=== PATIENT | female | born 1945 | race Caucasian/White ===

== ENCOUNTER → 2016-07-27 | Outpatient (CLI) | payer MEDICARE, OTHER ==
--- NOTE | 2016-08-05 09:31 | MM ---
Reason for exam: screening (asymptomatic). Last mammogram was performed 1 year and 1 month ago. History: Patient is postmenopausal and has history of other cancer at age 61. Family history of breast cancer in mother at age 36. Physical Findings: A clinical breast exam by your physician is recommended on an annual basis and results should be correlated with mammographic findings. MG 3D Screening Mammo W/Cad Bilateral CC and MLO view(s) were taken. Prior study comparison: June 24, 2015, mammogram, performed at [facility]. May 22, 2014, mammogram, performed at [facility]. The breast tissue is heterogeneously dense. This may lower the sensitivity of mammography. No significant changes when compared with prior studies. ASSESSMENT: Benign, BI-RAD 2 RECOMMENDATION: Routine screening mammogram of both breasts in 1 year.
== END | disposition home or self-care (01) ==
LOC: RADMAMWWP 12:59
PROVIDERS: ATTEND Obstetrics & Gynecology
DX: Z12.31 Encounter for screening mammogram for malignant neoplasm of breast (principal)
CPT/HCPCS: 77063; G0202

== ENCOUNTER → 2017-01-04 | Outpatient (CLI) | payer MEDICARE, OTHER ==
[2017-01-04 12:24] LABS: Basophils % (A) 1 %; CH 33.2; CHCM 34.5; Eosinophils # (A) 0.2 k/uL (0-0.7); Eosinophils % (A) 3 %; HCT 38.3 % (34.0-46.0); HDW 2.14; HGB 12.6 gm/dL (11.4-16.0); Luc # (Auto) 0.16; Luc % (Auto) 3; Lymphocytes % (A) 16 %; MCH 31.7 pg (25.0-35.0); MCHC 32.8 g/dL (31.0-37.0); MCV 96.6 fL (80.0-100.0); Mean Platelet Volume 8.1; Monocytes # (A) 0.5 k/uL (0-1.0); Monocytes % (A) 7 %; Neutrophils # (A) 4.5 k/uL (1.3-7.7); Neutrophils % (A) 71 %; RBC 3.96 m/uL (3.80-5.40); RDW 13.8 % (11.5-15.5); WBC 6.4 k/uL (3.8-10.6)
[2017-01-04 12:36] LABS: ALT 33 U/L (9-52); AST 17 U/L (14-36); Alkaline Phosphatase 84 U/L (38-126); Anion Gap 11 mmol/L; Blood Urea Nitrogen 8 mg/dL (7-17); Calcium 8.9 mg/dL (8.4-10.2); Carbon Dioxide 25 mmol/L (22-30); Chloride 87 mmol/L (98-107); Glucose 106 mg/dL (74-99); Non-African American GFR(MDRD) >60 (>60 ml/min/1.73 sqM); Potassium 5.1 mmol/L (3.5-5.1); Sodium 123 mmol/L (137-145); Total Bilirubin 0.4 mg/dL (0.2-1.3); Total Protein 6.6 g/dL (6.3-8.2)
== END | disposition home or self-care (01) ==
LOC: LABWHC1 11:55
PROVIDERS: ATTEND Internal Medicine
DX: E03.9 Hypothyroidism, unspecified (principal); I10 Essential (primary) hypertension; R53.83 Other fatigue
CPT/HCPCS: 36415; 80053; 84439; 84443; 84481; 85025

== ENCOUNTER → 2017-01-04 | Outpatient (CLI) | payer MEDICARE, OTHER ==
--- NOTE | 2017-01-04 13:17 | CT ---
EXAMINATION TYPE: CT hip bilateral wo con DATE OF EXAM: 01/04/2017 COMPARISON: NONE HISTORY: Bilateral hip pain CT DLP: Yefri hips mGycm Automated exposure control for dose reduction was used. FINDINGS: There is concentric narrowing of the joint space with no evidence of erosive change bilaterally. Hype rtrophic changes along the greater trochanter of the femur noted bilaterally. There is no acute fracture or dislocation. Vascular calcifications are seen. Pubic rami are intact. Incidental note is made of diverticulosis of the colon IMPRESSION: BILATERAL ARTHRITIC CHANGES WITH NO EROSIVE CHANGE. HYPERTROPHIC SPURRING ALONG THE GREATER TROCHANTE R IS ALSO NOTED BILATERALLY WHICH CAN OCCASIONALLY BE ASSOCIATED WITH TROCHANTERIC BURSITIS. IF SYMPT OMS PERSIST CONSIDER MRI..
--- NOTE | 2017-01-04 22:23 | MR ---
EXAMINATION TYPE: MR lumbar spine wo/w con DATE OF EXAM: 01/04/2017 COMPARISON: NONE HISTORY: Lumbar pain CONTRAST: 10 mL intravenous MultiHance. TECHNIQUE: Multiplanar, multisequence images of the lumbar spine were acquired. FINDINGS: L5-S1: There is a small central disc protrusion with mild anterior thecal sac compression. No AP spin al canal stenosis present. Neural foramen are patent. Disc space narrowing is present. Facet hypertro phy is present, greater on the left than the right. There is a left hemilaminectomy at L5-S1. Postsur gical changes may be present L4-5. L4-L5: Central disc bulge has mild to moderate anterior thecal sac compression. Facet hypertrophy is posterior lateral thecal sac compression. No AP spinal canal stenosis present. Neural foramen are pat ent. L3-L4: Disc uncovering is present with moderate anterior thecal sac flattening. Facet hypertrophy is posterior lateral thecal sac compression. Some lateral canal narrowing may be present. No AP spinal c anal stenosis is present. Neural foramen are patent. L2-L3: Broad-based disc bulge has mild anterior thecal sac compression. Posterior lateral thecal sac compression is present. No AP spinal canal stenosis present. Neural foramen are patent. L1-L2: Mild disc bulge has anterior thecal sac contact. No AP spinal canal stenosis or neural foramin al stenosis is present. No spinal canal stenosis. No foraminal stenosis. . T12-L1: No significant disc bulge or disc herniation. No spinal canal stenosis. No foraminal stenos is. . No abnormal enhancement. IMPRESSION: 1. Multilevel mild disc bulge with anterior thecal sac contact discussed above. No spinal canal steno sis present. 2. L3-4 facet hypertrophy may be contributing to mild lateral canal narrowing. 3. Multilevel facet hypertrophy is mild posterior lateral thecal sac compression.
== END | disposition home or self-care (01) ==
LOC: RADCTMAIN 12:27
PROVIDERS: ATTEND Psychiatry & Neurology Neurology
DX: M16.0 Bilateral primary osteoarthritis of hip (principal); M48.06 Spinal stenosis, lumbar region; M51.26 Other intervertebral disc displacement, lumbar region; M46.96 Unspecified inflammatory spondylopathy, lumbar region
CPT/HCPCS: 73700 ×2; 72158; A9577

== ENCOUNTER 2017-01-26 12:26 | Observation (INO) | payer MEDICARE, OTHER ==
--- NOTE | 2017-01-26 13:21 | ED ---
General Adult HPI - General Stated complaint: Abd Pain Time Seen by Provider: 01/26/17 12:55 Source: RN notes reviewed - History of Present Illness Initial comments: Patient 72-year-old female who presents emergency room today with a chief complaint of abdominal pain that began last night. She does admit to abdominal cramping middle of her abdomen. She does not feel nausea and no vomiting. States never had similar symptoms in the past. Currently rates pain 10/10. Denies any other radiation. Patient denies any recent fever, chills, shortness of breath, chest pain, back pain, numbness or tingling, dysuria or hematuria, constipation or diarrhea, headaches or visual changes, or any other complaints. - Related Data Home Medications Medication Instructions Recorded Confirmed Bidil 20/37.5mg 1 tab PO TID 10/17/15 01/26/17 Candesartan Cilexetil [Atacand] 32 mg PO HS 10/17/15 01/26/17 Levothyroxine Sodium [Synthroid] 50 mcg PO HS 10/17/15 01/26/17 Metoprolol Succinate [Toprol XL] 100 mg PO DAILY 10/17/15 01/26/17 OXcarbazepine [Trileptal] 150 mg PO BID 10/17/15 01/26/17 Simvastatin [Zocor] 20 mg PO HS 10/17/15 01/26/17 Gabapentin [Neurontin] 300 mg PO BID 01/26/17 01/26/17 Meclizine [Antivert] 25 mg PO TID PRN 01/26/17 01/26/17 Melatonin 10 mg PO HS 01/26/17 01/26/17 Sulfamethox-Tmp 800-160Mg [Bactrim 1 tab PO Q12HR 01/26/17 01/26/17 DS 800-160 mg] Allergies Allergy/AdvReac Type Severity Reaction Status Date / Time hydrocodone bitartrate Allergy Unknown Verified 01/26/17 13:40 [From Vicodin] Iodinated Contrast- Oral and Allergy Rash/Hives Verified 01/26/17 13:40 IV Dye [Iodinated Contrast Media - IV Dye] Review of Systems ROS Statement: Those systems with pertinent positive or pertinent negative responses have been documented in the HPI. ROS Other: All systems not noted in ROS Statement are negative. Past Medical History Past Medical History: Hyperlipidemia, Hypertension, Thyroid Disorder Additional Past Medical History / Comment(s): trigeminal neuralgia History of Any Multi-Drug Resistant Organisms: None Reported Past Surgical History: Back Surgery, Hernia Repair, Hysterectomy Past Psychological History: Anxiety Smoking Status: Never smoker Past Alcohol Use History: None Reported Past Drug Use History: None Reported General Exam - General Exam Comments Initial Comments: General: The patient is awake and alert, in no distress, and does not appear acutely ill. Eye: Pupils are equal, round and reactive to light, extra-ocular movements are intact. No nystagmus. There is normal conjunctiva bilaterally. No signs of icterus. Ears, nose, mouth and throat: There are moist mucous membranes and no oral lesions. Neck: The neck is supple, there is no tenderness or JVD. Cardiovascular: There is a regular rate and rhythm. No murmur, rub or gallop is appreciated. Respiratory: Lungs are clear to auscultation, respirations are non-labored, breath sounds are equal. No wheezes, stridor, rales, or rhonchi. Gastrointestinal: Normal appearance abdomen. Normal bowel sounds. No pulsatile mass. Tender to palpation epigastric and left upper quadrants. No rebound tenderness. No guarding. Musculoskeletal: Normal ROM, no tenderness. Strength 5/5. Sensation intact. Pulses equal bilaterally 2+. Neurological: A&O x 3. CN II-XII intact, There are no obvious motor or sensory deficits. Coordination appears grossly intact. Speech is normal. Skin: Skin is warm and dry and no rashes or lesions are noted. Psychiatric: Cooperative, appropriate mood & affect, normal judgment. Course Vital Signs 01/26/17 01/26/17 16:45 17:19 Temperature 98.5 F Pulse Rate 86 80 Respiratory 20 20 Rate Blood Pressure 204/98 146/72 O2 Sat by Pulse 97 3 L Oximetry Medical Decision Making - Medical Decision Making Patient has been reexamined multiple times in emergency room. She continues have abdominal pain. Patient's CT of the abdomen does show a pulmonary nodule along with a nodule in the liver. There is evidence for diverticulosis without diverticulitis. No other acute abnormalities. Patient's CAT scan. Labs been reviewed. Patient retention had a full catheter placement 1700 mL removed. Patient continues have pain after full catheter placement. Patient's blood pressure continued to be elevated in the emergency room needed multiple rounds of IV blood pressure medication. At this time she is now resting comfortably. Blood pressure 148/82. Patient was seen by attending physician Dr. Cotton did discuss case with admitting physician. Patient will be admitted for intractable abdominal pain and hypertension. - Lab Data Result diagrams: 01/26/17 12:30 01/26/17 12:30 Lab Results 01/26/17 01/26/17 01/26/17 Range/Units 12:30 12:30 12:30 WBC 9.2 (3.8-10.6) k/uL RBC 4.88 (3.80-5.40) m/uL Hgb 15.9 D (11.4-16.0) gm/dL Hct 44.9 (34.0-46.0) % MCV 92.0 (80.0-100.0) fL MCH 32.6 (25.0-35.0) pg MCHC 35.4 (31.0-37.0) g/dL RDW 13.0 (11.5-15.5) % Plt Count 337 (150-450) k/uL Neutrophils % 84 % Lymphocytes % 11 % Monocytes % 4 % Eosinophils % 1 % Basophils % 0 % Neutrophils # 7.7 (1.3-7.7) k/uL Lymphocytes # 1.0 (1.0-4.8) k/uL Monocytes # 0.4 (0-1.0) k/uL Eosinophils # 0.1 (0-0.7) k/uL Basophils # 0.0 (0-0.2) k/uL PT (9.0-12.0) sec INR (<1.2) APTT (22.0-30.0) sec Sodium 125 L (137-145) mmol/L Potassium 4.6 (3.5-5.1) mmol/L Chloride 93 L (98-107) mmol/L Carbon Dioxide 17 L (22-30) mmol/L Anion Gap 15 mmol/L BUN 8 (7-17) mg/dL Creatinine 0.70 (0.52-1.04) mg/dL Est GFR (MDRD) Af Amer >60 (>60 ml/min/1.73 sqM) Est GFR (MDRD) Non-Af >60 (>60 ml/min/1.73 sqM) Glucose 156 H (74-99) mg/dL Plasma Lactic Acid Ney (0.7-2.0) mmol/L Calcium 9.8 (8.4-10.2) mg/dL Total Bilirubin 1.0 (0.2-1.3) mg/dL AST 25 (14-36) U/L ALT 29 (9-52) U/L Alkaline Phosphatase 97 (38-126) U/L Total Creatine Kinase 46 (30-135) U/L CK-MB (CK-2) 0.6 (0.0-2.4) ng/mL CK-MB (CK-2) Rel Index 1.3 Total Protein 8.2 (6.3-8.2) g/dL Albumin 4.9 (3.5-5.0) g/dL Amylase 61 (30-110) U/L Urine Color Urine Appearance (Clear) Urine pH (5.0-8.0) Ur Specific [place] (1.001-1.035) Urine Protein (Negative) Urine Glucose (UA) (Negative) Urine Ketones (Negative) Urine Blood (Negative) Urine Nitrite (Negative) Urine Bilirubin (Negative) Urine Urobilinogen (<2.0) mg/dL Ur Leukocyte Esterase (Negative) Urine RBC (0-5) /hpf Urine WBC (0-5) /hpf 01/26/17 01/26/17 01/26/17 Range/Units 12:30 12:30 12:30 WBC (3.8-10.6) k/uL RBC (3.80-5.40) m/uL Hgb (11.4-16.0) gm/dL Hct (34.0-46.0) % MCV (80.0-100.0) fL MCH (25.0-35.0) pg MCHC (31.0-37.0) g/dL RDW (11.5-15.5) % Plt Count (150-450) k/uL Neutrophils % % Lymphocytes % % Monocytes % % Eosinophils % % Basophils % % Neutrophils # (1.3-7.7) k/uL Lymphocytes # (1.0-4.8) k/uL Monocytes # (0-1.0) k/uL Eosinophils # (0-0.7) k/uL Basophils # (0-0.2) k/uL PT 10.1 (9.0-12.0) sec INR 1.0 (<1.2) APTT 25.7 (22.0-30.0) sec Sodium (137-145) mmol/L Potassium (3.5-5.1) mmol/L Chloride (98-107) mmol/L Carbon Dioxide (22-30) mmol/L Anion Gap mmol/L BUN (7-17) mg/dL Creatinine (0.52-1.04) mg/dL Est GFR (MDRD) Af Amer (>60 ml/min/1.73 sqM) Est GFR (MDRD) Non-Af (>60 ml/min/1.73 sqM) Glucose (74-99) mg/dL Plasma Lactic Acid Ney 1.4 (0.7-2.0) mmol/L Calcium (8.4-10.2) mg/dL Total Bilirubin (0.2-1.3) mg/dL AST (14-36) U/L ALT (9-52) U/L Alkaline Phosphatase (38-126) U/L Total Creatine Kinase (30-135) U/L CK-MB (CK-2) (0.0-2.4) ng/mL CK-MB (CK-2) Rel Index Total Protein (6.3-8.2) g/dL Albumin (3.5-5.0) g/dL Amylase (30-110) U/L Urine Color Light Yellow Urine Appearance Clear (Clear) Urine pH 8.0 (5.0-8.0) Ur Specific [place] 1.007 (1.001-1.035) Urine Protein 1+ H (Negative) Urine Glucose (UA) Negative (Negative) Urine Ketones 1+ H (Negative) Urine Blood Negative (Negative) Urine Nitrite Negative (Negative) Urine Bilirubin Negative (Negative) Urine Urobilinogen <2.0 (<2.0) mg/dL Ur Leukocyte Esterase Negative (Negative) Urine RBC 9 H (0-5) /hpf Urine WBC 2 (0-5) /hpf Disposition Clinical Impression: Intractable abdominal pain, HTN (hypertension) Disposition: ADMITTED IP TO THIS [facility] Condition: Stable Referrals: Elder Engel MD [Primary Care Provider] - 1-2 days Time of Disposition: 17:09
[2017-01-26 13:33] LABS: Amylase 61 U/L (30-110); Anion Gap 15 mmol/L; Appearance,Urine Clear (Clear); Bilirubin,Urine Negative (Negative); Calcium 9.8 mg/dL (8.4-10.2); Carbon Dioxide 17 mmol/L (22-30); Chloride 93 mmol/L (98-107); Glucose 156 mg/dL (74-99); Glucose,Urine (UA) Negative (Negative); Ketones,Urine 1+ (Negative); Leukocyte Esterase,Urine Negative (Negative); Nitrite,Urine Negative (Negative); Non-African American GFR(MDRD) >60 (>60 ml/min/1.73 sqM); Particle Count 4799; Protein,Urine 1+ (Negative); RBC,Urine 9 /hpf (0-5); Sodium 125 mmol/L (137-145); Specific Gravity,Urine 1.007 (1.001-1.035); Total Protein 8.2 g/dL (6.3-8.2); UA Billing (MACRO vs. MICRO) MICRO; Urobilinogen,Urine <2.0 mg/dL (<2.0); WBC,Urine 2 /hpf (0-5)
[2017-01-26 13:35] LABS: RBC 4.88 m/uL (3.80-5.40); WBC 9.2 k/uL (3.8-10.6); WBC (Perox) 9.12
[2017-01-26 13:36] LABS: AST 25 U/L (14-36); Alkaline Phosphatase 97 U/L (38-126); Blood Urea Nitrogen 8 mg/dL (7-17); Potassium 4.6 mmol/L (3.5-5.1)
[2017-01-26 13:37] LABS: ALT 29 U/L (9-52)
[2017-01-26 13:38] LABS: CH 32.2; CHCM 35.1; HCT 44.9 % (34.0-46.0); HDW 2.19; HGB 15.9 gm/dL (11.4-16.0); MCH 32.6 pg (25.0-35.0); MCHC 35.4 g/dL (31.0-37.0); Mean Platelet Volume 7.3
[2017-01-26 13:39] LABS: Basophils % (A) 0 %; Eosinophils # (A) 0.1 k/uL (0-0.7); Eosinophils % (A) 1 %; Luc % (Auto) 1; Lymphocytes % (A) 11 %; Monocytes # (A) 0.4 k/uL (0-1.0); Monocytes % (A) 4 %; Neutrophils # (A) 7.7 k/uL (1.3-7.7); Neutrophils % (A) 84 %
[2017-01-26 13:47] LABS: Partial Thromboplastin Time 25.7 sec (22.0-30.0); Prothrombin Time 10.1 sec (9.0-12.0)
[2017-01-26 13:56] LABS: Creatine Kinase MB 0.6 ng/mL (0.0-2.4)
[2017-01-26] MEDS ORDERED: hydrALAZINE HCL 20 MG/ML 1 ML VIAL IVP STA ×2 (14:35→16:12)
--- NOTE | 2017-01-26 14:46 | CT ---
EXAMINATION TYPE: CT abdomen pelvis w con DATE OF EXAM: 01/26/2017 COMPARISON: NONE HISTORY: Upper abdominal pain and nausea CT DLP: 1190 mGycm Automated exposure control for dose reduction was used. CONTRAST: 100 cc Omnipaque 300 FINDINGS- LUNG BASES-subsegmental consolidation at both lung bases compatible scarring or atelectasis. Cannot e xclude a 2 mm nodule laterally within the left lower lobe. The heart is enlarged.. LIVER/GB-previous cholecystectomy changes noted. Is a 7 mm area of hyperdensity within the medial asp ect of the right lobe of the liver which may represent flash hemangioma.. PANCREAS- No gross abnormality is seen. SPLEEN- No gross abnormality is seen. ADRENALS-mild nodularity measuring less than a centimeter left adrenal gland too small to characteriz e.. KIDNEYS/BLADDER- no hydronephrosis nephrolithiasis or renal mass. BOWEL- no bowel dilatation. Diverticulosis of the colon. Stomach is decompressed and limited in asse ssment.. Small hiatal hernia noted. LYMPH NODES- No greater than 1cm abdominal or pelvic lymph nodes are appreciated. OSSEOUS STRUCTURES-up atrophic and degenerative disc disease noted. Disc bulging L4-L5 appears result ing canal stenosis. Canal stenosis L3-L4 also suspected. OTHER- small anterior abdominal wall fat-containing hernia incidentally noted. Thornton catheter in the bladder noted. Residual soft tissue density in the bilateral pelvic adnexa may represent residual ov kristina tissue or fallopian tube remnant. Uterus not present correlate for previous hysterectomy. IMPRESSION- 1. 2 mm left lower lobe pulmonary nodule too small to characterize 6 month follow-up could be obtaine christina 2. Colonic diverticulosis with no diagnostic evidence of diverticulitis 3. 7 mm area of enhancement right lobe the liver too small to characterize but most likely related to flash hemangioma. Short-term follow-up ultrasound could be obtained. 4. Soft tissue densities within the pelvic adnexa likely represent residual ovarian tissue or fallopi an tube remnant. Uterus not present correlate for previous hysterectomy.
[2017-01-26] MEDS ORDERED: HYDROmorphone 1 MG/ML 1 ML SYRINGE IVP STA ×2 (15:18→16:13)
[2017-01-26] MEDS ORDERED: LORazepam 2 MG/ML INJ IV STA (16:52)
[2017-01-26] MEDS ORDERED: LABETALOL 5 MG/ML VIAL MDV IVP STA (16:53)
[2017-01-26] MEDS ORDERED: NALOXONE 0.4 MG/ML 1 ML VIAL IV PRN (17:29)
[2017-01-26] MEDS ORDERED: ONDANSETRON 4 MG/2 ML VIAL IVP PRN (17:29)
[2017-01-26] MEDS ORDERED: HYDROmorphone 1 MG/ML 1 ML SYRINGE IV PRN (17:29)
[2017-01-26] MEDS ORDERED: LORazepam 2 MG/ML INJ IV PRN (17:29)
[2017-01-26] MEDS ORDERED: MORPHINE SULFATE 4 MG/ML SYRINGE IV PRN (17:57)
--- NOTE | 2017-01-26 18:10 | P.HPIM ---
History of Present Illness H&P Date: 01/26/17 Chief Complaint: Abdominal pain The patient is a 72-year-old female with a past history of essential hypertension, hypothyroidism, trigeminal neuralgia who presents to the ER Via EMS with chief complaint of sudden onset of severe upper mid epigastric abdominal pain without radiation reports some nausea but no vomiting. The patient Is pretty somnolent after having 2 doses of labetalol added in the ED and is not able to give adequate history, hence the history is obtained from her And ER records. The patient has been reports of the patient had severe headache today as well as significantly elevated blood pressures leading him to call EMS. Apparently the patient was seen yesterday by her PCP and a new medication was started, the is unable to provide specifics. In the ER she had a CT abdomen and pelvis did not show any acute intra- abdominal pathology, serum sodium was 125, bicarbonate was 17. Review of Systems Unable to obtain secondary to analgesic with sedatory effects given in the ER Past Medical History Past Medical History: Hyperlipidemia, Hypertension, Thyroid Disorder Additional Past Medical History / Comment(s): trigeminal neuralgia History of Any Multi-Drug Resistant Organisms: None Reported Past Surgical History: Back Surgery, Hernia Repair, Hysterectomy Past Psychological History: Anxiety Smoking Status: Never smoker Past Alcohol Use History: None Reported Past Drug Use History: None Reported Medications and Allergies Home Medications Medication Instructions Recorded Confirmed Type Bidil 20/37.5mg 1 tab PO TID 10/17/15 01/26/17 History Candesartan Cilexetil [Atacand] 32 mg PO HS 10/17/15 01/26/17 History Levothyroxine Sodium [Synthroid] 50 mcg PO HS 10/17/15 01/26/17 History Metoprolol Succinate [Toprol XL] 100 mg PO DAILY 10/17/15 01/26/17 History OXcarbazepine [Trileptal] 150 mg PO BID 10/17/15 01/26/17 History Simvastatin [Zocor] 20 mg PO HS 10/17/15 01/26/17 History Gabapentin [Neurontin] 300 mg PO BID 01/26/17 01/26/17 History Meclizine [Antivert] 25 mg PO TID PRN 01/26/17 01/26/17 History Melatonin 10 mg PO HS 01/26/17 01/26/17 History Sulfamethox-Tmp 800-160Mg [Bactrim 1 tab PO Q12HR 01/26/17 01/26/17 History DS 800-160 mg] Allergies Allergy/AdvReac Type Severity Reaction Status Date / Time hydrocodone bitartrate Allergy Unknown Verified 01/26/17 13:40 [From Vicodin] Iodinated Contrast- Oral and Allergy Rash/Hives Verified 01/26/17 13:40 IV Dye [Iodinated Contrast Media - IV Dye] Physical Exam Vitals: Vital Signs Temp Pulse Resp BP Pulse Ox 01/26/17 17:19 80 20 146/72 93 L 01/26/17 16:45 98.5 F 86 20 204/98 97 Intake and Output 01/26/17 01/26/17 01/26/17 06:59 14:59 22:59 Other: Weight 61.235 kg Patient Weight 01/27/17 06:59 Weight 61.235 kg Constitutional: No acute distress, extremely somnolent and not able to provide a history Eyes: Anicteric sclerae, moist conjunctiva, no lid-lag, PERRLA ENMT: NC/AT,Oropharynx clear, no erythema, exudates Neck:Supple, FROM, no masses, or JVD, No carotid bruits; No thyromegaly Lungs: Clear to auscultation, Clear to percussion, Normal respiratory effort, no accessory muscle use Cardiovascular: Heart regular in rate and rhythm, No murmurs, gallops, or rubs no peripheral edema Abdominal: Soft tender to palpation, facial grimaces nom distended, no guarding , no rebound or rigidity, Normoactive bowel sounds No hepatomegaly, No splenomegaly, No palpable mass No abdominal wall hernia noted Skin: Normal temperature, tone, texture, turgor, No induration No subcutaneous nodules, No rash, lesions, No ulcers Extremities:No digital cyanosis No clubbing, Pedal pulses intact and symmetrical Radial pulses intact and symmetrical Normal gait and station, No calf tenderness Psychiatric: Appropriate affect Intact judgement Neuro: Muscles Strength 5/5 in all 4 extremities, Sensation to light touch grossly present throughout, Cranial nerves II-XII grossly intact. No focal sensory deficits Somnolent and difficult to arouse Results CBC & Chem 7: 01/26/17 12:30 01/26/17 12:30 Labs: Abnormal Lab Results - Last 24 Hours (Table) 01/26/17 01/26/17 Range/Units 12:30 12:30 Sodium 125 L (137-145) mmol/L Chloride 93 L (98-107) mmol/L Carbon Dioxide 17 L (22-30) mmol/L Glucose 156 H (74-99) mg/dL Urine Protein 1+ H (Negative) Urine Ketones 1+ H (Negative) Urine RBC 9 H (0-5) /hpf Assessment and Plan (1) Intractable abdominal pain Status: Acute (2) Hyponatremia Status: Acute (3) Accelerated hypertension Status: Acute (4) Metabolic acidosis Status: Acute Plan: patient is placed in observation status after presenting with intractable upper abdominal pain, less than 2 midnights stay, Suspect underlying peptic ulcer disease versus possible FILM MOUNTER etiology, will consult GI doctor [place] to evaluate for EGD, We'll contact her PCP Dr. Engel tomorrow guarding what new medication was initiated at his last visit yesterday. We'll initiate PPI therapy, supportive management with morphine rather than Dilaudid the patient is completely somnolent And difficult to arouse and evaluate at this time. Continue with Zofran as needed, will continue to monitor her blood pressure Plan initiated metoprolol IV every 6 hours when necessary for her accelerated HTN likely pain induced. We'll check a serum lipase as it is more specific and a amylase. Her chart indicates the patient has been hyponatremic previously I suspect this may be chronic given the patient's Chart review she is receiving ongoing therapy with Trileptal for trigeminal neuralgia. Again I'll discuss this with the patient's PCP WILL FOLLOW HER CLINICAL COURSE Time with Patient: Greater than 30
[2017-01-26] MEDS ORDERED: METOPROLOL TARTRATE 5 MG/5 ML VIAL IVP PRN (18:12)
[2017-01-26] MEDS ORDERED: MORPHINE SULFATE 4 MG/ML SYRINGE IVP PRN (18:15)
[2017-01-26] MEDS ORDERED: ATORVASTATIN 10 MG TAB PO SCH (21:00)
[2017-01-26] MEDS ORDERED: LEVOTHYROXINE 50 MCG TAB PO SCH (21:00)
[2017-01-26] MEDS ORDERED: ISOSORBIDE DINITRATE 20 MG TAB PO SCH (22:00)
[2017-01-26] MEDS ORDERED: HYDROCHLOROTHIAZIDE 12.5 MG CAP PO SCH (22:00)
[2017-01-26] MEDS ORDERED: MD COMMUNICATION TO PHARMACY 1 EACH MISC PO SCH (22:00)
[2017-01-26] MEDS ORDERED: HYDROCHLOROTHIAZIDE 25 MG TAB PO SCH (22:00)
--- NOTE | 2017-01-26 22:32 | P.CONS ---
History of Present Illness - Reason for Consult Consult date: 01/26/17 - History of Present Illness The patient is a 72-year-old female with a past history of essential hypertension, hypothyroidism, trigeminal neuralgia who presented to the ER [facility] with chief complaint of sudden onset of severe upper mid epigastric abdominal pain associated with nausea. The pain did not radiate to the back and did not have any pleuritic component. There was no associated vomiting. We are asked to see her for consideration for an upper endoscopy. The patient had prior cholecystectomy. There is no history of optic ulcer disease. Denied any hematemesis or melena. She has not been taking any NSAIDs that we are aware of. Review of Systems Constitutional: Denies fever, chills, sweats, weight gain, or loss. HEENT: History of headaches, no blurred vision or loss, earaches, drainage, tinnitus, oral mucosal lesions, dysphagia, or odynophagia. Cardiac: No chest pains or palpitations. Respiratory: Negative for shortness of breath, hemoptysis, cough, or sputum production. Gastrointestinal: See HPI for pertinent findings. Genitourinary: Negative for hematuria, urgency, frequency, polyuria or dysuria. Musculoskeletal: Negative for muscle aches, swelling, arthritis, and arthralgias. Neurologic: See above. No double vision or any new sensory or motor changes. Endocrine: Negative for thyroid problems. Skin: Negative for rash or itching. Psychiatric: Negative history for depression and anxiety. Past Medical History Past Medical History: Hyperlipidemia, Hypertension, Thyroid Disorder Additional Past Medical History / Comment(s): trigeminal neuralgia History of Any Multi-Drug Resistant Organisms: None Reported Past Surgical History: Back Surgery, Hernia Repair, Hysterectomy Past Psychological History: Anxiety Smoking Status: Never smoker Past Alcohol Use History: None Reported Past Drug Use History: None Reported - Past Family History Father Additional Family Medical History / Comment(s): at age 92 from "old age" Mother Family Medical History: Congestive Heart Failure (CHF) Additional Family Medical History / Comment(s): at age 84 from chf Medications and Allergies Home Medications Medication Instructions Recorded Confirmed Type Bidil 20/37.5mg 1 tab PO TID 10/17/15 01/26/17 History Candesartan Cilexetil [Atacand] 32 mg PO HS 10/17/15 01/26/17 History Levothyroxine Sodium [Synthroid] 50 mcg PO HS 10/17/15 01/26/17 History Metoprolol Succinate [Toprol XL] 100 mg PO DAILY 10/17/15 01/26/17 History OXcarbazepine [Trileptal] 150 mg PO BID 10/17/15 01/26/17 History Simvastatin [Zocor] 20 mg PO HS 10/17/15 01/26/17 History Gabapentin [Neurontin] 300 mg PO BID 01/26/17 01/26/17 History Meclizine [Antivert] 25 mg PO TID PRN 01/26/17 01/26/17 History Melatonin 10 mg PO HS 01/26/17 01/26/17 History Sulfamethox-Tmp 800-160Mg [Bactrim 1 tab PO Q12HR 01/26/17 01/26/17 History DS 800-160 mg] Allergies Allergy/AdvReac Type Severity Reaction Status Date / Time hydrocodone bitartrate Allergy Unknown Verified 01/26/17 13:40 [From Vicodin] Iodinated Contrast- Oral and Allergy Rash/Hives Verified 01/26/17 13:40 IV Dye [Iodinated Contrast Media - IV Dye] Physical Exam Vitals: Vital Signs Temp Pulse Pulse Resp BP BP Pulse Ox 01/26/17 18:46 98.3 F 82 16 142/71 97 01/26/17 18:02 86 20 136/65 93 L 01/26/17 17:19 80 20 146/72 93 L 01/26/17 16:45 98.5 F 86 20 204/98 97 Intake and Output 01/26/17 01/26/17 01/26/17 06:59 14:59 22:59 Other: Weight 61.235 kg Patient Weight 01/27/17 06:59 Weight 61.235 kg General appearance: The patient is alert, oriented, in some distress. HET: Head is normocephalic and atraumatic. Pupils are equal and reactive. Sclerae anicteric. Oropharynx is clear without lesions. Neck: Supple without lymphadenopathy. Trachea midline. Heart: No abnormal sounds murmurs or friction rubs. Lungs: Clear to auscultation, no dullness to percussion. Abdomen: Soft, bowel sounds present. Epigastric tenderness. No peritoneal signs. No palpable organomegaly or masses. Extremities: Normal skin color and turgor. No cyanosis, rash, ulceration or clubbing. No edema. Radial and pedal pulses are 2/4 bilaterally. Neurological: No focal deficits. Strength and sensation are grossly intact. Results CBC & Chem 7: 01/26/17 12:30 01/26/17 12:30 Labs: Abnormal Lab Results - Last 24 Hours (Table) 01/26/17 01/26/17 Range/Units 12:30 12:30 Sodium 125 L (137-145) mmol/L Chloride 93 L (98-107) mmol/L Carbon Dioxide 17 L (22-30) mmol/L Glucose 156 H (74-99) mg/dL Urine Protein 1+ H (Negative) Urine Ketones 1+ H (Negative) Urine RBC 9 H (0-5) /hpf Microbiology - Last 24 Hours (Table) 01/26/17 12:30 Urine Culture - Preliminary Urine,Clean Catch Assessment and Plan Plan: 72-year-old female with acute onset of epigastric pain. The possibility of gastritis or peptic ulcer disease as well as esophagitis should be considered. I discussed with the patient and her that if her pain persists we will proceed with an upper endoscopy as you have suggested. We will keep nothing by mouth and follow closely with you.
[2017-01-26] MEDS: PANTOPRAZOLE 40 MG/10 ML VIAL IV SCH (22:38)
[2017-01-26] MEDS: ENOXAPARIN 40 MG/0.4 ML SYRINGE SQ SCH (22:38)
[2017-01-26] MEDS: GABAPENTIN 300 MG CAP PO SCH (22:39)
[2017-01-26] MEDS: MELATONIN 5 MG TABLET PO SCH (22:40)
[2017-01-26] MEDS: LOSARTAN 50 MG TAB PO SCH (22:40)
[2017-01-26] MEDS: OXcarbazepine 150 MG TAB PO SCH (22:41)
[2017-01-26] MEDS: SODIUM CHLORIDE 0.9% 1,000 ML IV SCH (22:42)
[2017-01-26] MEDS: hydrALAZINE HCL 25 MG TAB PO SCH (22:43)
[2017-01-26] MEDS: ISOSORBIDE DINITRATE 20 MG TAB PO SCH (22:44)
[2017-01-27] MEDS: LEVOTHYROXINE 50 MCG TAB PO SCH (06:20)
[2017-01-27] MEDS: SODIUM CHLORIDE 0.9% 1,000 ML IV SCH ×3 (06:20→20:00)
[2017-01-27] MEDS: OXcarbazepine 150 MG TAB PO SCH ×2 (08:09→21:33)
[2017-01-27] MEDS: ISOSORBIDE DINITRATE 20 MG TAB PO SCH ×3 (08:09→21:33)
[2017-01-27] MEDS: hydrALAZINE HCL 25 MG TAB PO SCH ×3 (08:09→21:34)
[2017-01-27] MEDS: GABAPENTIN 300 MG CAP PO SCH ×3 (08:09→21:33)
[2017-01-27 08:19] LABS: ALT 12 U/L (9-52); AST 52 U/L (14-36); Alkaline Phosphatase 69 U/L (38-126); Anion Gap 14 mmol/L; Blood Urea Nitrogen 16 mg/dL (7-17); Carbon Dioxide 17 mmol/L (22-30); Chloride 97 mmol/L (98-107); Glucose 107 mg/dL (74-99); Non-African American GFR(MDRD) 50 (>60 ml/min/1.73 sqM); Potassium 5.8 mmol/L (3.5-5.1); Sodium 128 mmol/L (137-145); Total Bilirubin 1.8 mg/dL (0.2-1.3); Total Protein 8.4 g/dL (6.3-8.2)
[2017-01-27 08:24] LABS: Basophils % (A) 0 %; CH 32.4; CHCM 34.1; Eosinophils # (A) 0.1 k/uL (0-0.7); Eosinophils % (A) 0 %; HCT 44.5 % (34.0-46.0); HDW 2.13; HGB 15.2 gm/dL (11.4-16.0); Luc # (Auto) 0.25; Luc % (Auto) 2; Lymphocytes # (A) 1.1 k/uL (1.0-4.8); Lymphocytes % (A) 8 %; MCH 32.4 pg (25.0-35.0); MCV 95.3 fL (80.0-100.0); Mean Platelet Volume 8.3; Monocytes # (A) 1.2 k/uL (0-1.0); Monocytes % (A) 8 %; Neutrophils # (A) 11.3 k/uL (1.3-7.7); Neutrophils % (A) 81 %; RBC 4.67 m/uL (3.80-5.40); RDW 14.3 % (11.5-15.5); WBC 13.8 k/uL (3.8-10.6); WBC (Perox) 13.42
[2017-01-27] MEDS ORDERED: METOPROLOL SUCCINATE (ER) 100 MG TAB.ER.24H PO SCH ×2 (09:00→21:00)
[2017-01-27 10:03] VITALS: BMI 24.7
[2017-01-27] MEDS ORDERED: diphenhydrAMINE 50 MG/ML 1 ML VIAL IVP PRN (10:05)
[2017-01-27] MEDS: ENOXAPARIN 40 MG/0.4 ML SYRINGE SQ SCH (10:15)
[2017-01-27] MEDS: PANTOPRAZOLE 40 MG/10 ML VIAL IV SCH (10:17)
[2017-01-27] MEDS ORDERED: MIDAZOLAM 2 MG/2 ML VIAL ONE (10:41)
[2017-01-27] MEDS ORDERED: PROPOFOL 10 MG/ML 20 ML VIAL IV ONE (10:41)
[2017-01-27] MEDS ORDERED: fentaNYL (PF) 50 MCG/ML 2 ML AMP ONE (10:41)
[2017-01-27] MEDS ORDERED: LABETALOL 5 MG/ML VIAL MDV ONE (10:41)
[2017-01-27] MEDS ORDERED: IV FLUID CONTINUATION 1,000 ML IV ONE (10:43)
--- NOTE | 2017-01-27 10:56 | P.PCN ---
Date of Procedure: 01/27/17 Procedure(s) Performed: BRIEF HISTORY: Patient is a 72-year-old, pleasant, female, admitted to the hospital 2 days ago with severe epigastric pain associated with nausea vomiting for the last 2 days' duration. She is hence scheduled for an upper endoscopy to evaluate further. PROCEDURE PERFORMED: Esophagogastroduodenoscopy with biopsy. PREOPERATIVE DIAGNOSIS: Acute onset of epigastric pain associated with nausea/ vomiting of 2 days' duration. IV sedation per anesthesia. PROCEDURE: After informed consent was obtained, the patient was brought into the endoscopy unit. IV sedation was administered by Anesthesia under continuous monitoring. Initially the Olympus GIF-140 video endoscope was inserted into the mouth. Esophagus intubated without any difficulty. It was gradually advanced into the stomach and duodenum and carefully examined. The bulb and the second part of the duodenum appeared normal. The scope at this time was withdrawn to the stomach, adequately insufflated with air, and upon careful examination, mucosa of the antrum, body, cardia and the fundus had diffuse gastritis with multiple mucosal scattered erosions with diffuse erythema and biopsies were done from the antrum and body the stomach.. The scope was then withdrawn into the esophagus. The GE junction was located at 41 cm from the incisors. There was a short tongue of Soliz's appearing mucosa extending 2 mm proximal to the GE junction which was biopsied. The rest of the esophagus appeared normal. There were no erosions or ulcerations seen and the patient tolerated the procedure well. IMPRESSION: 1. Severe diffuse gastritis but no evidence of peptic ulcer disease. 2. Short segment Soliz's esophagus but no evidence of esophagitis. RECOMMENDATIONS: The findings of this examination were discussed with the patient as well as her family. She was advised to follow with the biopsy results. She will be started on a clear liquid diet. Continue with IV Protonix 40 mg twice daily.
[2017-01-27] MEDS ORDERED: MAG HYDROX/AL HYDROX/SIMETH 30 ML, HYOSCYAMINE ELIXIR 10 ML, CIMETIDINE HCL 300 MG, LID... PO STA ×4 (11:49)
--- NOTE | 2017-01-27 12:49 | P.PN ---
Subjective Patient with mid epigastric pain and complaining of headache this morning, she is more awake but somnolent and unable to give a more complete history, Apparently she has been having episodes of urinary retention, seen by Dr. Mock her PCP was started on Bactrim. She complaining of itchiness today Began after starting morphine. Scheduled to have EGD Objective - Vital Signs Vital signs: Vital Signs Temp 98.5 F 01/27/17 07:00 Pulse 84 01/27/17 07:00 Resp 18 01/27/17 07:00 BP 155/84 01/27/17 07:00 Pulse Ox 98 01/27/17 07:00 Intake & Output 01/26/17 01/27/17 01/27/17 18:59 06:59 18:59 Intake Total 1375 250 Output Total 600 Balance 775 250 Weight 61.235 kg 61.235 kg Intake: IV 250 Intake, IV Titration 1375 Amount Sodium Chloride 0.9% 1, 1375 000 ml @ 125 mls/hr IV . Q8H [facility] Rx#:[id number] Output: Urine 600 Uretheral (Thornton) 600 Other: Voiding Method Indwelling Catheter Indwelling Catheter - Exam Constitutional: No acute distress, conversant, pleasant Eyes: Anicteric sclerae, moist conjunctiva, no lid-lag, PERRLA ENMT: NC/AT,Oropharynx clear, no erythema, exudates Neck:Supple, FROM, no masses, or JVD, No carotid bruits; No thyromegaly Lungs: Clear to auscultation, Clear to percussion, Normal respiratory effort, no accessory muscle use Cardiovascular: Heart regular in rate and rhythm, No murmurs, gallops, or rubs no peripheral edema Abdominal: Soft tender to palpation in midepigastrium, nom distended, no guarding, no rebound or rigidity, Normoactive bowel sounds No hepatomegaly, No splenomegaly, No palpable mass No abdominal wall hernia noted Skin: Normal temperature, tone, texture, turgor, No induration No subcutaneous nodules, No rash, lesions, No ulcers Extremities:No digital cyanosis No clubbing, Pedal pulses intact and symmetrical Radial pulses intact and symmetrical Normal gait and station, No calf tenderness Psychiatric: Alert and oriented to person, place and time, Appropriate affect Intact judgement Neuro: Muscles Strength 5/5 in all 4 extremities, Sensation to light touch grossly present throughout, Cranial nerves II-XII grossly intact. No focal sensory deficits - Labs CBC & Chem 7: 01/27/17 07:21 01/27/17 07:21 Labs: Abnormal Lab Results - Last 24 Hours (Table) 01/26/17 01/26/17 01/27/17 Range/Units 12:30 12:30 07:21 WBC 13.8 H (3.8-10.6) k/uL Neutrophils # 11.3 H (1.3-7.7) k/uL Monocytes # 1.2 H (0-1.0) k/uL Sodium 125 L (137-145) mmol/L Potassium (3.5-5.1) mmol/L Chloride 93 L (98-107) mmol/L Carbon Dioxide 17 L (22-30) mmol/L Creatinine (0.52-1.04) mg/dL Glucose 156 H (74-99) mg/dL Total Bilirubin (0.2-1.3) mg/dL AST (14-36) U/L Total Protein (6.3-8.2) g/dL Urine Protein 1+ H (Negative) Urine Ketones 1+ H (Negative) Urine RBC 9 H (0-5) /hpf 01/27/17 Range/Units 07:21 WBC (3.8-10.6) k/uL Neutrophils # (1.3-7.7) k/uL Monocytes # (0-1.0) k/uL Sodium 128 L (137-145) mmol/L Potassium 5.8 H (3.5-5.1) mmol/L Chloride 97 L (98-107) mmol/L Carbon Dioxide 17 L (22-30) mmol/L Creatinine 1.07 H (0.52-1.04) mg/dL Glucose 107 H (74-99) mg/dL Total Bilirubin 1.8 H (0.2-1.3) mg/dL AST 52 H (14-36) U/L Total Protein 8.4 H (6.3-8.2) g/dL Urine Protein (Negative) Urine Ketones (Negative) Urine RBC (0-5) /hpf Microbiology - Last 24 Hours (Table) 01/26/17 12:30 Urine Culture - Preliminary Urine,Clean Catch Assessment and Plan (1) Acute gastritis without bleeding Narrative/Plan: Appreciate GI doctor Wilbert for seeing the patient in performing EGD * Revealing acute gastritis without bleeding is likely the source of her midepigastric pain * Continue on PPI therapy with Protonix 40 mg IV twice a day and give her a GI cocktail and advanced to a liquid diet Status: Acute (2) Hyponatremia Narrative/Plan: Resolving with IV fluids Status: Acute (3) Accelerated hypertension Narrative/Plan: Blood pressure with better control Status: Acute (4) Metabolic acidosis Status: Acute (5) HARVEY (acute kidney injury) Narrative/Plan: Patient with a slight increase of her creatinine to 1.09 some hyperkalemia and metabolic acidosis We'll continue with hydration and repeat a BMP later today and consider a renal ultrasound Status: Acute Time with Patient: Greater than 30
[2017-01-27 16:34] LABS: Anion Gap 11 mmol/L; Blood Urea Nitrogen 14 mg/dL (7-17); Calcium 9.3 mg/dL (8.4-10.2); Carbon Dioxide 21 mmol/L (22-30); Chloride 100 mmol/L (98-107); Glucose 117 mg/dL (74-99); Non-African American GFR(MDRD) >60 (>60 ml/min/1.73 sqM); Potassium 4.3 mmol/L (3.5-5.1); Sodium 132 mmol/L (137-145)
[2017-01-27] MEDS: cloNIDine HCL 0.2 MG TAB PO SCH ×2 (17:16→21:33)
[2017-01-27] MEDS: SULFACETAMIDE SOD 10% OPHTH DROPS 15 ML BTL RIGHT EYE SCH ×2 (17:16→21:33)
[2017-01-27] MEDS: ATORVASTATIN 10 MG TAB PO SCH (18:00)
[2017-01-27] MEDS: MELATONIN 5 MG TABLET PO SCH (21:25)
[2017-01-27] MEDS: LOSARTAN 50 MG TAB PO SCH (21:34)
[2017-01-27 21:59] VITALS: RESP 16
[2017-01-27] MEDS ORDERED: cloNIDine HCL 0.2 MG TAB PO SCH (22:00)
[2017-01-28] MEDS: SODIUM CHLORIDE 0.9% 1,000 ML IV SCH (04:15)
[2017-01-28] MEDS: LEVOTHYROXINE 50 MCG TAB PO SCH (08:27)
--- NOTE | 2017-01-28 08:32 | US ---
EXAMINATION TYPE: US abdomen limited DATE OF EXAM: 01/28/2017 COMPARISON: CT in PACS from 2 days ago. CLINICAL HISTORY: elevated liver enzymes. EXAM MEASUREMENTS: Liver Length: 17.5 cm Gallbladder Wall: Surgically absent CBD: 0.2 cm Right Kidney: 9.8 x 4.0 x 4.1 cm Pancreas: Tail obscured by overlying bowel gas, visualized portions appear wnl Liver: Measuring upper limits of normal, slightly heterogeneous. Unable to visualize area seen on pr ior CT scan. Gallbladder: Surgically absent Evidence for sonographic Obregon's sign: No CBD: wnl Right Kidney: No hydronephrosis or masses seen IMPRESSION: No worrisome intrahepatic mass or intrahepatic ductal dilatation is seen.
[2017-01-28] MEDS: hydrALAZINE HCL 25 MG TAB PO SCH ×2 (08:33→15:49)
[2017-01-28] MEDS: ISOSORBIDE DINITRATE 20 MG TAB PO SCH ×2 (08:34→15:49)
[2017-01-28] MEDS: GABAPENTIN 300 MG CAP PO SCH ×2 (08:34→15:49)
[2017-01-28] MEDS: cloNIDine HCL 0.2 MG TAB PO SCH ×2 (08:34→15:49)
[2017-01-28] MEDS: OXcarbazepine 150 MG TAB PO SCH (08:35)
[2017-01-28] MEDS: PANTOPRAZOLE 40 MG/10 ML VIAL IV SCH (08:35)
[2017-01-28] MEDS: ENOXAPARIN 40 MG/0.4 ML SYRINGE SQ SCH (08:36)
[2017-01-28] MEDS: SULFACETAMIDE SOD 10% OPHTH DROPS 15 ML BTL RIGHT EYE SCH ×3 (08:37→17:17)
[2017-01-28 09:30] LABS: Basophils % (A) 0 %; CH 31.6; CHCM 33.2; Eosinophils # (A) 0.1 k/uL (0-0.7); Eosinophils % (A) 1 %; HCT 39.9 % (34.0-46.0); HDW 2.15; HGB 13.3 gm/dL (11.4-16.0); Luc # (Auto) 0.13; Luc % (Auto) 2; Lymphocytes # (A) 1.2 k/uL (1.0-4.8); Lymphocytes % (A) 17 %; MCH 31.8 pg (25.0-35.0); MCHC 33.3 g/dL (31.0-37.0); MCV 95.6 fL (80.0-100.0); Mean Platelet Volume 6.7; Monocytes # (A) 0.5 k/uL (0-1.0); Monocytes % (A) 8 %; Neutrophils % (A) 73 %; RBC 4.18 m/uL (3.80-5.40); RDW 13.5 % (11.5-15.5); WBC 6.9 k/uL (3.8-10.6); WBC (Perox) 7.12
--- NOTE | 2017-01-28 09:42 | XR ---
EXAMINATION TYPE: XR chest 2V DATE OF EXAM: 01/28/2017 COMPARISON: NONE HISTORY: Leukocytosis and fever. TECHNIQUE: Frontal and lateral views of the chest are obtained. FINDINGS: There is no focal air space opacity or pneumothorax seen. Tiny bilateral pleural effusions are seen with subtle blunting of posterior costophrenic angles. The cardiac silhouette size is mildl y enlarged. Multilevel spurring in thoracic spine is present. IMPRESSION: No suspicious acute infiltrate is present.
[2017-01-28 09:49] LABS: ALT 27 U/L (9-52); AST 19 U/L (14-36); Alkaline Phosphatase 64 U/L (38-126); Anion Gap 9 mmol/L; Blood Urea Nitrogen 11 mg/dL (7-17); Calcium 8.9 mg/dL (8.4-10.2); Carbon Dioxide 22 mmol/L (22-30); Chloride 103 mmol/L (98-107); Glucose 115 mg/dL (74-99); Non-African American GFR(MDRD) >60 (>60 ml/min/1.73 sqM); Potassium 4.3 mmol/L (3.5-5.1); Sodium 134 mmol/L (137-145); Total Bilirubin 0.6 mg/dL (0.2-1.3); Total Protein 6.4 g/dL (6.3-8.2)
[2017-01-28] MEDS ORDERED: LORATADINE 10 MG TAB PO SCH (11:15)
[2017-01-28] MEDS ORDERED: FLUTICASONE 50MCG/SPRAY NASAL 16GM EA NOSTRIL SCH (11:15)
[2017-01-28 15:08] VITALS: BP 174/86; PULSE 70; TEMP 98.1
[2017-01-28 15:37] LABS: Bilirubin, Delta 0.2 mg/dL (0.0-0.2); Total Bilirubin 0.5 mg/dL (0.2-1.3)
[2017-01-28 15:49] LABS: Amorphous Sediment,Urine Rare /hpf; Appearance,Urine Clear (Clear); Bacteria,Urine Rare /hpf; Bilirubin,Urine Negative (Negative); Glucose,Urine (UA) Negative (Negative); Ketones,Urine Negative (Negative); Leukocyte Esterase,Urine Large (Negative); Nitrite,Urine Negative (Negative); PH, Urine 5.5 (5.0-8.0); Particle Count 1904; Protein,Urine Negative (Negative); RBC,Urine 15 /hpf (0-5); Specific Gravity,Urine 1.005 (1.001-1.035); Squamous Epithelial Cell,Urine 4 /hpf (0-4); UA Billing (MACRO vs. MICRO) MICRO; Urobilinogen,Urine <2.0 mg/dL (<2.0); WBC,Urine 12 /hpf (0-5)
[2017-01-28] MEDS: ATORVASTATIN 10 MG TAB PO SCH (15:49)
[2017-01-28] MEDS ORDERED: CEPHALEXIN 500 MG CAP PO STA (16:47)
--- NOTE | 2017-01-28 17:12 | P.DS ---
Providers Date of admission: 01/26/17 17:29 Attending physician: Avni Torres MD Consults: 01/26/17 17:59 Consult Physician Routine Consulting Provider: Josue Wolff Consult Reason/Comments: EGD eval Do you want consulting provider notified?: Yes Primary care physician: Elder Engel - Discharge Diagnosis(es) (1) Acute gastritis without bleeding Current Visit: Yes Status: Acute (2) Hyponatremia Current Visit: Yes Status: Acute (3) Accelerated hypertension Current Visit: Yes Status: Acute (4) Metabolic acidosis Current Visit: Yes Status: Acute (5) HARVEY (acute kidney injury) Current Visit: Yes Status: Acute Hospital Course: The patient is a 72-year-old female that presented with epigastric pain secondary to acute gastritis flareup is confirmed on EGD done by GI Dr. Wolff She was started on Protonix IV, the patient had a CT abdomen and pelvis further workup that showed incidental left 2 mm lower lobe pulmonary nodule and a 7 mm flash hemangioma right lobe of the liver. She did well post-EGD, she received GI cocktail and her diet was advanced slowly. The patient had been complaining of Urinary retention, she was started on some Bactrim by her PCP which she had been on for a couple of days cause some acute renal insufficiency with mild metabolic acidosis and hyperkalemia which spontaneously resolved with holding the patient' s Bactrim and initiating IV fluids sensation. Her initial urinalysis was negative, however Repeat urinalysis positive for bacteria and WBCs and leuk esterase and she was given initial dose of Keflex prior to discharge, and cultures are pending at time of Discharge. Given a prescription for Protonix 40 mg by mouth twice a day or 2 months and she'll schedule a follow-up appointment with Dr. Wolff. She was instructed Follow-up With her PCP in 3-5 days. The patient will need a follow-up imaging for her pulmonary nodule and liver hemangioma this Discharge process took approximately 35 minutes Patient Condition at Discharge: Stable Plan - Discharge Summary New Discharge Prescriptions: New RX: Fluticasone Nasal Purdon [Flonase Nasal Purdon] 2 spray EA NOSTRIL DAILY spray RX: Gabapentin [Neurontin] 300 mg PO TID cap RX: Isosorbide Dinitrate [Isordil] 20 mg PO TID tab RX: Loratadine [Claritin] 10 mg PO DAILY tab RX: OXcarbazepine [Trileptal] 450 mg PO BID tab RX: Pantoprazole [Protonix] 40 mg PO AC-BID #120 tab Cephalexin [Keflex] 500 mg PO Q12HR #6 cap Continue RX: Simvastatin [Zocor] 20 mg PO HS RX: Levothyroxine Sodium [Synthroid] 50 mcg PO HS RX: OXcarbazepine [Trileptal] 450 mg PO BID RX: Metoprolol Succinate [Toprol XL] 100 mg PO DAILY RX: Candesartan Cilexetil [Atacand] 32 mg PO HS Bidil 20/37.5mg 1 tab PO TID RX: Melatonin 10 mg PO HS RX: Gabapentin [Neurontin] 300 mg PO TID RX: Sulfacetamide Sodium [Sulfacetamide Sod 10% Ophth Soln] 2 - 3 drop RIGHT EYE QID RX: cloNIDine HCL [Catapres] 0.2 mg PO TID Discontinued Sulfamethox-Tmp 800-160Mg [Bactrim DS 800-160 mg] 1 tab PO Q12HR Meclizine [Antivert] 25 mg PO TID PRN PRN Reason: Vertigo Discharge Medication List Bidil 20/37.5mg 1 tab PO TID 10/17/15 [History] RX: Candesartan Cilexetil [Atacand] 32 mg PO HS 10/17/15 [History] RX: Levothyroxine Sodium [Synthroid] 50 mcg PO HS 10/17/15 [History] RX: Metoprolol Succinate [Toprol XL] 100 mg PO DAILY 10/17/15 [History] RX: OXcarbazepine [Trileptal] 450 mg PO BID 10/17/15 [History] RX: Simvastatin [Zocor] 20 mg PO HS 10/17/15 [History] RX: Gabapentin [Neurontin] 300 mg PO TID 01/26/17 [History] RX: Melatonin 10 mg PO HS 01/26/17 [History] RX: Sulfacetamide Sodium [Sulfacetamide Sod 10% Ophth Soln] 2 - 3 drop RIGHT EYE QID 01/27/17 [History] RX: cloNIDine HCL [Catapres] 0.2 mg PO TID 01/27/17 [History] Cephalexin [Keflex] 500 mg PO Q12HR #6 cap 01/28/17 [Rx] RX: Fluticasone Nasal Purdon [Flonase Nasal Purdon] 2 spray EA NOSTRIL DAILY spray 01/28/17 [Rx] RX: Gabapentin [Neurontin] 300 mg PO TID cap 01/28/17 [Rx] RX: Isosorbide Dinitrate [Isordil] 20 mg PO TID tab 01/28/17 [Rx] RX: Loratadine [Claritin] 10 mg PO DAILY tab 01/28/17 [Rx] RX: OXcarbazepine [Trileptal] 450 mg PO BID tab 01/28/17 [Rx] RX: Pantoprazole [Protonix] 40 mg PO AC-BID #120 tab 01/28/17 [Rx] Follow up Appointment(s)/Referral(s): Josue Wolff MD [STAFF PHYSICIAN] - 1 Week Elder Engel MD [Primary Care Provider] - 1-2 days Discharge Disposition: HOME SELF-CARE
[2017-01-28] MEDS ORDERED: PANTOPRAZOLE 40 MG TABLET PO SCH (17:30)
== END 2017-01-28 19:35 | disposition home or self-care (01) ==
LOC: EC 12:26 → 5MS5E 17:29 → INTOOBSV 17:29
PROVIDERS: ADMIT Family Medicine; ATTEND Family Medicine
DX: K29.00 Acute gastritis without bleeding (principal); F41.9 Anxiety disorder, unspecified; E78.5 Hyperlipidemia, unspecified; I10 Essential (primary) hypertension; K57.90 Diverticulosis of intestine, part unspecified, without perforation or abscess without bleeding; R91.1 Solitary pulmonary nodule; E03.9 Hypothyroidism, unspecified; G50.0 Trigeminal neuralgia; K22.70 Barrett's esophagus without dysplasia; R33.9 Retention of urine, unspecified; E87.1 Hypo-osmolality and hyponatremia; N17.9 Acute kidney failure, unspecified; E87.5 Hyperkalemia; D18.03 Hemangioma of intra-abdominal structures; E87.2 Acidosis; Z79.899 Other long term (current) drug therapy; Z88.5 Allergy status to narcotic agent; Z91.041 Radiographic dye allergy status; Z90.49 Acquired absence of other specified parts of digestive tract; Z82.49 Family history of ischemic heart disease and other diseases of the circulatory system
CPT/HCPCS: 96376 ×2; 96372; 96375 ×3; 96374; 99285; 36415; 88305; 80053 ×3; 80048; 82150; 82248; 82550; 82553; 83605; 83690 ×2; 85025 ×3; 85610; 85730; 81001 ×2; 88342; 87086 ×2; 87081; 87430; 71020; 76705; 74177; 43239; G0378 ×3; J2250; J2060; J2270; J0360; J1200; J1650 ×2; J3010; J1170; Q9967; J2704; C9113 ×3

== ENCOUNTER → 2017-04-05 | Outpatient (CLI) | payer MEDICARE, OTHER ==
--- NOTE | 2017-04-06 09:29 | MR ---
EXAMINATION TYPE: MR angio renal wo/w con DATE OF EXAM: 04/05/2017 COMPARISON: NONE HISTORY: Abdominal pain Right Kidney Pain. Hypertension CONTRAST: Standard multiplanar, multisequence MRI departmental protocol utilizing 6.0 mL intravenous Gadavist g adolinium contrast. FINDINGS: The abdominal aorta is of normal caliber. Scattered atheromatous changes are noted. The kidneys enhance symmetrically. There is no evidence for solid renal mass, hydronephrosis or nephr olithiasis. Tiny renal cortical cysts are seen bilaterally totaling approximately 3 within each kidne y and each measuring less than 5 mm. Single left renal artery is patent. No evidence for renal artery stenosis. Dual right renal artery system. More cranial renal artery is patent and fills demonstrate evidence fo r renal artery stenosis. The inferior pole branch demonstrates luminal narrowing at its origin estima ravindra at 50%. Remainder of the inferior pole renal artery branch demonstrates normal caliber. IMPRESSION: 1. Dual right-sided renal arterial system with the lower pole renal artery demonstrating 50% stenosis . 2. No evidence for left-sided renal artery stenosis with single renal artery noted.
== END | disposition home or self-care (01) ==
LOC: RADMRIMAIN 16:51
PROVIDERS: ATTEND Internal Medicine Nephrology
DX: I70.1 Atherosclerosis of renal artery (principal); I10 Essential (primary) hypertension
CPT/HCPCS: C8902; A9581; 74185

== ENCOUNTER 2017-09-28 07:22 | Day surgery (SDC) | payer MEDICARE, OTHER ==
[2017-09-23 15:27] VITALS: BMI 23.2
[~2017-09-28 07:22] MED LIST: LACTATED RINGERS 1,000 ML IV SCH; LIDOCAINE 1% 20 ML VIAL (10MG/ML) FOR IV START INTRADERMA PRN
[2017-09-28 08:05] VITALS: RESP 16; TEMP 96.9
[2017-09-28] MEDS: FLURBIPROFEN 0.03% OPHTH DROPS 2.5 ML BTL OP ONE ×3 (08:08→08:27)
[2017-09-28] MEDS: PHENYLEPHRINE 10% OPHTH DROPS 5 ML BTL OP ONE ×3 (08:11→08:31)
[2017-09-28] MEDS: CYCLOPENTOLATE 1% OPHTH SOLN 2 ML BTL OP ONE ×3 (08:17→08:35)
[2017-09-28] MEDS ORDERED: PROPOFOL 10 MG/ML 20 ML VIAL IV ONE (08:46)
[2017-09-28] MEDS ORDERED: HYALURONATE SODIUM INTRAOCULAR 1 EACH SYRINGE (10MG/ML) INTRAOCULA ONE (08:49)
[2017-09-28] MEDS ORDERED: BALANCED SALT IRRIG SOLN COMB2 15 ML IRRIG.SOLN INTRAOCULA ONE (08:49)
[2017-09-28] MEDS ORDERED: TIMOLOL 0.5% OPHTH SOLN (PF) 0.2 ML DROPERETTE LEFT EYE ONE (08:50)
[2017-09-28] MEDS ORDERED: EPINEPHrine (PF) 0.5 ML in BALANCED SALT IRRIG SOLN COMB2 500 ML IRRIGATION ONE (08:55)
--- NOTE | 2017-09-28 09:11 | P.OP ---
Date of Procedure: 09/28/17 Procedure(s) Performed: PREOPERATIVE DIAGNOSIS: Cataract, left eye. POSTOPERATIVE DIAGNOSIS: Cataract, left eye. OPERATION: Phacoemulsification cataract, left eye. DESCRIPTION OF PROCEDURE: The patient was taken to the preoperative holding area. Intravenous Propofol was given so as to bring about adequate sedation. The following mixture was given for local anesthesia: 5 mL of 2% lidocaine, 5 mL of 0.75% Marcaine, and 1 mL of Wydase. Approximately 4 mL was injected in the retrobulbar space of the surgical eye. Additional 1 mL was then directed to the temporal area of the surgical eye. This was performed to allow adequate neurological block of the facial muscles. The patient was revived and then taken into the operative room. The patient was prepped and draped in the usual sterile manner for the operative eye. A lid speculum was put into position. The conjunctiva was resected back from the limbus in the 12 o'clock position. Bleeding was controlled with electrocautery. A #69 blade was then used and a half-thickness scleral incision approximately 1-mm posterior to the limbus was made on bare sclera. This was shelved in the clear cornea using a crescent knife. Next a 15-degree blade was used to make a stab incision at the 3 o' clock position at the corneolimbal interface. Keratome blade was then used and the superior wound was extended into the anterior chamber. Viscoelastic was injected into the anterior chamber and to maintain its form. Next, a cystotome was used and a continuous anterior capsulotomy was made without difficulty. Hydrodissection using a blunt cannula and BSS was performed. Phaco probe was then employed and a groove extending from 12 to 6 o'clock in the lens was created. A Richard wand was used through the stab incision so as to perform a divide and conquer technique. Next an irrigation aspiration probe was utilized and any residual cortex was removed from the eye. Again, viscoelastic was injected into the anterior chamber. An Aristides posterior chamber lens implant was placed in the cartridge and injected into the anterior chamber without difficulty. The [employer] Windowey hook was utilized to spin the lens into position and this was again performed without any difficulty. The irrigation and aspiration probe was again employed and any residual viscoelastic was removed from the eye. Then BSS was injected into the limbal stab incision and the anterior chamber re-inflated. The conjunctiva was reapproximated using electrocautery. One drop of 0.25% Timoptic was placed over the corneal along with TobraDex ophthalmic ointment. Two sterile patches and a Sharma eye shield were taped into position. The patient was transported to the recovery room in stable condition. Pathology: none sent Condition: stable Disposition: same day
[2017-09-28 09:42] VITALS: BP 160/78; PULSE 51
[2017-09-28] MEDS ORDERED: GENTAMICIN/PREDNISOL AC OPHTH OINT 3.5GM OPHTHALMIC ONE (23:00)
[2017-09-28] MEDS ORDERED: TIMOLOL 0.5% OPHTH DROPS 5 ML BTL OP ONE (23:00)
[2017-09-28] MEDS ORDERED: BUPIVACAINE (PF) 0.75% 5 ML, HYALURONIDASE, HUMAN RECOMB 150 UNIT, LIDOCAINE 2% (PF) 10... MISCELLANE ONE ×3 (23:00)
== END 2017-09-28 09:59 | disposition home or self-care (01) ==
LOC: OR 07:22
PROVIDERS: ATTEND Ophthalmology
DX: H25.12 Age-related nuclear cataract, left eye (principal); I12.9 Hypertensive chronic kidney disease with stage 1 through stage 4 chronic kidney disease, or unspecified chronic kidney disease; N18.9 Chronic kidney disease, unspecified; E78.5 Hyperlipidemia, unspecified; E07.9 Disorder of thyroid, unspecified; M19.90 Unspecified osteoarthritis, unspecified site; Z85.828 Personal history of other malignant neoplasm of skin; Z79.82 Long term (current) use of aspirin; Z79.51 Long term (current) use of inhaled steroids; Z79.899 Other long term (current) drug therapy; Z91.040 Latex allergy status; Z91.048 Other nonmedicinal substance allergy status
CPT/HCPCS: 66984; V2632; V2788; J3470; J2001; J0171; J2704

== ENCOUNTER → 2017-10-08 | Outpatient (CLI) | payer MEDICARE, OTHER ==
--- NOTE | 2017-10-08 11:01 | CT ---
EXAMINATION TYPE: CT chest abdomen w con DATE OF EXAM: 10/08/2017 COMPARISON: NONE HISTORY: Follow up to Lung nodule and possible hepatic hemangioma. CT DLP: 1084 mGycm. Automated Exposure Control for Dose Reduction was Utilized. CONTRAST: CT scan of the thorax, abdomen and pelvis is performed with IV Contrast, patient injected with 80 mL of Isovue 300. FINDINGS: LUNGS: There is a stable 2 mm left lower lobe pulmonary nodule on series 4 image 36. No pulmonary mas ses are identified. No additional pulmonary nodules are seen. Scattered areas of pleural thickening a re seen on the left such as on image 25 that are submillimeter. Subsegmental atelectasis is also note d bilaterally. Right upper lobe pleural parenchymal scarring is seen on image 22. The lungs are gross ly clear, there is no concerning parenchymal mass or nodule identified. There is no pleural effusio n or pneumothorax seen. The tracheobronchial tree is patent. MEDIASTINUM: There are no greater than 1 cm hilar or mediastinal lymph nodes. No pericardial effusi on is seen. LIVER/GB: There is stability of the 7 mm hyperdense focus within segment IVb of the liver in comparis on to the prior of 01/26/2017. Again this could represent a flash filling hemangioma. Just inferior to this there is more geographic area of hyperattenuation on image 71. It is noted that the liver is hy poattenuated in comparison to that of the spleen representing mild hepatic steatosis and therefore th is region may represent area of focal fatty sparing, a typical location. PANCREAS: No significant abnormality is seen. No ductal dilatation. SPLEEN: No significant abnormality is seen. ADRENALS: Again there is mild nodularity of the adrenal glands maintain their normal adreniform shape . No measurable nodule. Mild adrenal gland hyperplasia is suspected. KIDNEYS: Kidneys enhance and excrete symmetrically. No hydronephrosis. BOWEL: Colonic diverticulosis without pericolonic fat stranding is seen. Very small hiatal hernia is redemonstrated.. LYMPH NODES: No greater than 1cm abdominal lymph nodes are appreciated. OSSEOUS STRUCTURES: Moderate multilevel degenerative change of the spine. Osseous structures appear i ntact. Demonstration of disc bulge at L4-L5 and L3-L4 again results in at least mild spinal canal shirley nosis. OTHER: Moderate calcific atheromatous changes of the abdominal aorta and its branches are seen. Small fat filled umbilical hernia superimposed upon diastases recti. IMPRESSION: 1. Stability of the 2 mm left lower lobe pulmonary nodule. No additional pulmonary nodules, masses o r new central adenopathy are seen. Additional follow-up in one year could be performed to determine l britany-term stability. If stable at that time the nodule could be considered benign. 2. Mild hepatic steatosis and findings most suggestive of focal fatty sparing with stability of the h yperdense 7 mm hepatic lesion favored to represent a benign hemangioma. This could also be reassessed on the above suggested follow-up exam.
== END | disposition home or self-care (01) ==
LOC: RADCTMAIN 10-06 11:11
PROVIDERS: ATTEND Internal Medicine
DX: K76.0 Fatty (change of) liver, not elsewhere classified (principal); R91.1 Solitary pulmonary nodule; K76.9 Liver disease, unspecified
CPT/HCPCS: 82565; 84520; 71260; 74160; 36415; Q9967

== ENCOUNTER → 2017-10-27 | Outpatient (CLI) | payer MEDICARE, OTHER ==
--- NOTE | 2017-10-27 13:15 | BD ---
EXAMINATION TYPE: Axial Bone Density DATE OF EXAM: 10/27/2017 COMPARISON: NONE CLINICAL HISTORY: Osteoporosis screening. Postmenopausal female. Height: 61.2 IN Weight: 130 LBS FRAX RISK QUESTIONS: History of Fracture in Adulthood: RT FOOT AGE 70 AND 71 Secondary Osteoporosis: 3. Menopause before 45: YES AGE 32 RISK FACTORS HISTORY OF: Surgery to Spine: L-SPINE When: AGE 50 Family History of Osteoporosis: SISTER Active: YES Diet low in dairy products/other sources of calcium: YES Postmenopausal woman: AGE 32 MEDICATIONS: Thyroid Medications: YES Which medication: Levothyroxine How Lon + YEARS Additional Medications: VIT D, LEVOTHYROXINE,BIDIL, METOPROLOL, SIMVASTATIN, MELATONIN, , NEURONTIN, CATAPRES, AMBIEN, EXAM MEASUREMENTS: Bone mineral densitometry was performed using the [employer] System. Bone mineral density about the R hip (g/cm2): 0.867 Bone mineral density about the L hip (g/cm2): 0.874 T Score values are as follows: -----R Neck: -1.2 -----L Neck: -1.2 -----R Total: -0.4 -----L Total: -0.4 Bone mineral density BASELINE Bone mineral density about the L Wrist (g/cm2): 0.486 T Score values are as follows: -----Dist. R+U: -3.6 -----Prox. R+U: -2.5 -----Radius total: -3.1 Bone mineral density BASELINE IMPRESSION: Osteoporosis (T Score less than -2.5). There is increased fracture risk and therapy is usually indicated based on age. Re-Screen 1-2 years. NOTE: T-SCORE=SD OF THE YOUNG ADULT MEAN.
--- NOTE | 2017-10-28 08:23 | MM ---
Reason for exam: screening (asymptomatic). Last mammogram was performed 1 year and 3 months ago. History: Patient is postmenopausal and has history of other cancer at age 61. Family history of breast cancer in mother at age 36. Physical Findings: A clinical breast exam by your physician is recommended on an annual basis and results should be correlated with mammographic findings. MG 3D Screening Mammo W/Cad Bilateral CC and MLO view(s) were taken. Prior study comparison: July 27, 2016, bilateral MG 3d screening mammo w/cad. June 24, 2015, mammogram, performed at [facility]. The breast tissue is heterogeneously dense. This may lower the sensitivity of mammography. Benign appearing bilateral calcifications. No suspicious abnormality. No significant changes when compared with prior studies. ASSESSMENT: Benign, BI-RAD 2 RECOMMENDATION: Routine screening mammogram of both breasts in 1 year.
== END | disposition home or self-care (01) ==
LOC: RADMAMWWP 08:53
PROVIDERS: ATTEND Obstetrics & Gynecology
DX: Z12.31 Encounter for screening mammogram for malignant neoplasm of breast (principal); M81.0 Age-related osteoporosis without current pathological fracture
CPT/HCPCS: 77063; 77067; 77080

== ENCOUNTER → 2018-01-27 | Outpatient (CLI) | payer MEDICARE, OTHER ==
--- NOTE | 2018-01-27 17:15 | MR ---
EXAMINATION TYPE: MR cervical spine wo con DATE OF EXAM: 01/27/2018 COMPARISON: None HISTORY: Neck pain TECHNIQUE: Multiplanar, multisequence images of the cervical spine were acquired. C2-C3: No evidence for degenerative disc disease. No disc bulge/herniation or protrusion. No Canal stenosis. Foramina are patent bilaterally. C3-C4: There is narrowing of disc height. Disc bulge has moderate anterior thecal sac compression. Co rd contact and cord flattening is present. Spinal canal stenosis is present measuring 0.6 cm. Uncover tebral joint hypertrophy has mild bilateral foraminal narrowing. C4-C5: There is a small central protrusion with anterior thecal sac contact. No AP spinal canal steno sis present. Uncovertebral joint hypertrophy is mild bilateral foraminal narrowing. C5-C6: Mild disc bulge has anterior thecal sac flattening. No spinal canal stenosis or cord contact i s evident. Uncovertebral joint hypertrophy is moderate left and mild right foraminal narrowing. C6-C7: Disc bulge has moderate anterior thecal sac compression. Cord contact without cord deformity m ay be present. No AP spinal canal stenosis present. Left foraminal narrowing due to uncovertebral luci nt hypertrophy and disc bulging is present. C7-T1: No evidence for degenerative disc disease. No disc bulge/herniation or protrusion. No Canal stenosis. Foramina are patent bilaterally. Vertebral body heights are preserved. Alignment is normal. Spinal cord maintains normal signal throug h its visualized course. IMPRESSION: 1. Disc bulging and endplate changes at C3-4 with cord contact and cord flattening. AP spinal canal s tenosis is present at C3-4 level. 2. Uncovertebral joint hypertrophy discussed above with some foraminal narrowing present.
== END | disposition home or self-care (01) ==
LOC: RADMRIMAIN 08:16
PROVIDERS: ATTEND Psychiatry & Neurology Neurology
DX: M48.02 Spinal stenosis, cervical region (principal); M46.92 Unspecified inflammatory spondylopathy, cervical region; M50.21 Other cervical disc displacement, high cervical region; M99.71 Connective tissue and disc stenosis of intervertebral foramina of cervical region
CPT/HCPCS: 72141

== ENCOUNTER → 2018-03-16 | Outpatient (CLI) | payer MEDICARE, OTHER ==
--- NOTE | 2018-03-16 13:10 | MR ---
EXAMINATION TYPE: MR brain wo/w con DATE OF EXAM: 03/16/2018 COMPARISON: None HISTORY: Atypical facial pain TECHNIQUE: Multiplanar, multisequence images of the brain and brainstem is performed without and with IV contras t, utilizing 3 mL intravenous Gadavist . FINDINGS: Diffusion weighted images demonstrate no evidence of a recent infarct or other diffusion ab normality. Metallic artifact is noted overlying the anterior facial structures which limits their ass essment including the orbits and maxillary sinuses. Mild generalized degenerative change. There is both confluent and numerous focal areas of abnormal si gnal within the white matter which are nonspecific but most typical remote microvascular ischemia. No midline shift or mass effect. Midline structures demonstrate normal morphology. The craniocervical junction appears within normal limits. Post contrast images demonstrate no abnormal enhancement. The dural venous sinuses appear pa tent. Changes of mild chronic right mastoiditis. 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 Hypertrophic and degenerative change of the upper cervical spine. IMPRESSION: There is significant artifact involving the anterior margin of the intracranial and facia l structures due to metallic artifact which limits evaluation of portions of the brain, orbits and si nuses. 1. Mild degenerative change and nonspecific white matter changes most typical remote microvascular is chemia. 2. There is a low focus of signal (4 mm) within the pituitary gland paramedian to the left suspicious for pituitary microadenoma, correlate clinically. 3. 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
== END | disposition home or self-care (01) ==
LOC: RADMRIMAIN 11:55
PROVIDERS: ATTEND Psychiatry & Neurology Neurology
DX: R90.89 Other abnormal findings on diagnostic imaging of central nervous system (principal); E34.8 Other specified endocrine disorders; G31.9 Degenerative disease of nervous system, unspecified; G50.1 Atypical facial pain
CPT/HCPCS: 70553; A9585

== ENCOUNTER → 2018-04-25 | Outpatient (CLI) | payer MEDICARE, OTHER ==
[2018-04-22 14:12] VITALS: BMI 23.0
[2018-04-25 13:57] VITALS: BP 192/84; PULSE 57; RESP 16
--- NOTE | 2018-04-25 14:36 | P.PAINCN ---
History of Present Illness - Reason for Consult Consult date: 04/25/18 - History of Present Illness This is 73 years old female,, started complaining of severe headache , the headache started 4 months ago after she had right cataract surgery, she reported the headache is severe constant, radiates from the base of the skull to the top of the head, it's constant and aggravated with neck movement, patient had occasional numbness and tingling sensation in the upper extremities , but she had no weakness in the upper extremities, she denies any fever or night sweats with, and no change in the bowel movement or urination, patient had 20 years history of trigeminal neuralgia and she was treated for that different kind of medication and she is currently on Tegretol 200 mg 3 times a day and Neurontin 300 mg 3 times a day. Past Medical History Past Medical History: Hyperlipidemia, Hypertension, Thyroid Disorder Additional Past Medical History / Comment(s): HEAD AND NECK PAIN History of Any Multi-Drug Resistant Organisms: None Reported Past Surgical History: Appendectomy, Back Surgery, Cholecystectomy, Hernia Repair, Hysterectomy, Tonsillectomy Additional Past Surgical History / Comment(s): TIGIST CATARACT SX Past Anesthesia/Blood Transfusion Reactions: Previous Problems w/ Anesthesia Additional Past Anesthesia/Blood Transfusion Reaction / Comm: diff waking up Past Psychological History: Anxiety Additional Psychological History / Comment(s): pt lives with her spouse, 1 cat, 1 dog. no medical equipment, no home care services. Smoking Status: Never smoker Past Alcohol Use History: Rare Past Drug Use History: None Reported - Past Family History Father Family Medical History: Cancer Additional Family Medical History / Comment(s): skin Mother Family Medical History: Cancer Additional Family Medical History / Comment(s): breast Brother(s) Family Medical History: Cancer Medications and Allergies Home Medications Medication Instructions Recorded Confirmed Type Bidil 20/37.5mg 1 tab PO TID 10/17/15 04/25/18 History Candesartan Cilexetil [Atacand] 16 mg PO BID 10/17/15 04/25/18 History Levothyroxine Sodium [Synthroid] 50 mcg PO DAILY 10/17/15 04/25/18 History Metoprolol Succinate [Toprol XL] 100 mg PO HS 10/17/15 04/25/18 History Simvastatin [Zocor] 20 mg PO DAILY 10/17/15 04/25/18 History Gabapentin [Neurontin] 300 mg PO QID PRN 01/26/17 04/25/18 History cloNIDine HCL [Catapres] 0.1 mg PO TID 01/27/17 04/25/18 History Biotin 5,000 mcg PO DAILY 09/23/17 04/25/18 History Cholecalciferol (Vitamin D3) 2,000 unit PO DAILY 09/23/17 04/25/18 History [Vitamin D3] Fluticasone Nasal [place] [Flonase 2 spray EA NOSTRIL DAILY PRN 09/23/17 04/25/18 History Nasal [place]] L.acidoph,Paracasei, B.lactis 1 each PO DAILY 09/23/17 04/25/18 History [Probiotic] Loratadine [Claritin] 10 mg PO DAILY PRN 09/23/17 04/25/18 History Pantoprazole Sodium [Protonix] 40 mg PO BID 04/22/18 04/25/18 History Triazolam 0.25 mg PO HS 04/22/18 04/25/18 History carBAMazepine [TEGretol] 200 mg PO TID 04/22/18 04/25/18 History Acetaminophen [Tylenol] 500 mg PO DAILY PRN 04/25/18 04/25/18 History Ibuprofen [Motrin] 400 mg PO TID PRN 04/25/18 04/25/18 History Allergies Allergy/AdvReac Type Severity Reaction Status Date / Time adhesive tape Allergy Rash/Hives Verified 04/25/18 13:40 hydrocodone bitartrate Allergy Unknown Verified 04/25/18 13:40 [From Vicodin] Iodinated Contrast- Oral and Allergy Rash/Hives Verified 04/25/18 13:40 IV Dye [Iodinated Contrast Media - IV Dye] latex Allergy Rash/Hives Verified 04/25/18 13:40 Sulfa (Sulfonamide Allergy Dyspnea Verified 04/25/18 13:40 Antibiotics) Physical Exam Vitals: Vital Signs Pulse Resp BP 04/25/18 13:50 57 L 16 192/84 Social history : not smoker , NO ETOH , NO Illegal drugs use . Review of Systems : 1- Constitutional : no chills , no fever , no night sweats , 2- Ears : no ear discharge , no change in hearing 3-Nose, Mouth ,Throat ; no bleeding gums, no sore throat , no epistaxis , 4-Cardiovascular : Denies chest pain, , no orthopnea , no palpitation 5-Respiratory : Denies cough , no dyspnea , no hemoptysis 6-Gastrointestinal :, no change in bowel habits , no coffee- ground emesis . 7-Genitourinary : No hematuria , no discharge , no incontinence, 8-Musculoskeletal : No gait dysfunction , report low back pain , 9- Neurological : no ataxia , no tremor , no sezure , severe headache R>L , neck pain 10-Psychatric , no suicidal ideation no hallucination 11- Endocrine : no cold intolerence , no polyuria , no polydypsia , 12-Hematologic : no easy bleeding , no easy brusing , 13-Allergic / immunology : no angioedema , no wheezing ,no allergic rhinitis 14-Integumentary : no brttle nails , no change hair / nails , no foot/leg ulcers . Physical Examinations : 1-Constitutional : Cooperative , not in acute distress . 2-HEENT : nech ; supple , no Lymphadenopathy , no Thyromegaly , :eyes , no icterus, no photophobia . ENT : , normal oropharynx , no Thrush 3- Respiratory : Chest clear to auscultations Bilaterally , no wheezing 4- Cardiovascular : regular rate and rhythem , S1 , S2 , no S3 , no S4. 5- Gastrointestinal: abdomen soft no tenderness , no organomegally . 6- Genitourinary : Defferred . 7-Integumentary : No cellulitis , no ulcers , normal skin turgor , no cyanotic . 8- neurologic : Cranial nerve II to XII intact , no focal neurological deffecit 9-psychatric : alert , oriented X 3 , appropriate affect , intact judgment and insight . 10-Lymphatic : no Lymphadenopathy. 11- musculoskeltal: normal gait Cervical Spine motor stregnth in the deltoid and biceps, normal right side , normal Left side motor stregnth biceps and the wrist extensors normal right side ,normal left side . motor stregnth in the triceps muscle . normal Right side , normal Left side deep tendon reflexes normal at the biceps , normal at Brachioradialis , normal at triceps. positive cervical facet loading test . Severe tenderness over the occipital nerve right > left Lumber spine moter stegnth lower extremities ,thigh and legs 5/5 Right side , 5/5 Left side Results Comments: MRI of the cervical spine= multilevel cervical degenerative disc disease and cord flattening at C3 4, and multilevel uncovertebral joint hypertrophy, and foraminal narrowing Assessment and Plan Plan: Assessment and plan=1-bilateral occipital neuralgia. 2-cervicogenic headache. 3-cervical spinal stenosis. 4-cervical spondylosis. Patient could benefit from occipital nerve block , procedure risk and benefits and alternatives discussed with the patient and she agreed with the preceding. Time with Patient: Greater than 30 PQRS Measure Charge Sheet Measure #130: Documentation of Current Meds in Medical Chart: Patient's medications documented in chart Measure #226: Tobacco Use: Screen & Cessation Intervention: Pt not a tobacco user Measure #111: Pneumonia Vaccination: Pneumococcal vaccine administered or previously received Measure #47: Advance Care Plan: Advance care planning discussed & documented, pt chose/unable to give Measure #412: Opioid Treatment Agreement: No documentation of signed opioid treatment agreement Measure #408: Opioid Therapy Follow-up Evaluation: Patient had NO f/u eval minimum every 3 months during opioid therapy Measure #317: Preventitive Care & Scrn High Bld Press & F/U: Pre-hypertensive or hypertensive BP documented, pt will f/u with PCP Measure #128: Body Mass Index (BMI) Screening & Follow-up: BMI documented within normal parameters Measure #131: Pain Assessment & Follow-up: Pain positive & plan documented, Follow-up scheduled Measure #431: Unhealthy Alcohol Use Preventative Care & Scrn: Patient not identified as an unhealthy alcohol user PQRS Narrative: Smoking Status Never smoker Do You Want the Pneumonia Vaccine Up to Date Vaccine AT THIS TIME? Blood Pressure 192/84 Pain Intensity [Posterior Head 8 ] Scale Used Numeric (1 - 10) Hx Alcohol Use (MH) Yes: RARE Home Medications: Ambulatory Orders Bidil 20/37.5mg 1 tab PO TID 10/17/15 Candesartan Cilexetil [Atacand] 16 mg PO BID 10/17/15 Levothyroxine Sodium [Synthroid] 50 mcg PO DAILY 10/17/15 Metoprolol Succinate [Toprol XL] 100 mg PO HS 10/17/15 Simvastatin [Zocor] 20 mg PO DAILY 10/17/15 Gabapentin [Neurontin] 300 mg PO QID PRN 01/26/17 cloNIDine HCL [Catapres] 0.1 mg PO TID 01/27/17 Biotin 5,000 mcg PO DAILY 09/23/17 Cholecalciferol (Vitamin D3) [Vitamin D3] 2,000 unit PO DAILY 09/23/17 Fluticasone Nasal [place] [Flonase Nasal [place]] 2 spray EA NOSTRIL DAILY PRN 09/23 L.acidoph,Paracasei, B.lactis [Probiotic] 1 each PO DAILY 09/23/17 Loratadine [Claritin] 10 mg PO DAILY PRN 09/23/17 Pantoprazole Sodium [Protonix] 40 mg PO BID 04/22/18 Triazolam 0.25 mg PO HS 04/22/18 carBAMazepine [TEGretol] 200 mg PO TID 04/22/18 Acetaminophen [Tylenol] 500 mg PO DAILY PRN 04/25/18 Ibuprofen [Motrin] 400 mg PO TID PRN 04/25/18
== END ==
LOC: PNWHC3 13:20
PROVIDERS: ATTEND Specialist
DX: M48.02 Spinal stenosis, cervical region (principal); M47.812 Spondylosis without myelopathy or radiculopathy, cervical region; M79.2 Neuralgia and neuritis, unspecified; R51 Headache; Z79.899 Other long term (current) drug therapy; Z88.2 Allergy status to sulfonamides; Z91.048 Other nonmedicinal substance allergy status; Z91.041 Radiographic dye allergy status
CPT/HCPCS: 99211

== ENCOUNTER 2018-05-18 07:21 | Day surgery (SDC) | payer MEDICARE, OTHER ==
[2018-05-06 16:17] VITALS: BMI 23.0
[~2018-05-18 07:21] MED LIST changes: -LACTATED RINGERS 1,000 ML IV SCH; -LIDOCAINE 1% 20 ML VIAL (10MG/ML) FOR IV START INTRADERMA PRN; +SODIUM CHLORIDE 0.9% 500 ML 500 ML IV SCH
[2018-05-18] MEDS ORDERED: LACTATED RINGERS 1,000 ML IV ONE (07:44)
[2018-05-18] MEDS ORDERED: LIDOCAINE 1% 20 ML VIAL (10MG/ML) FOR IV START INTRADERMA ONE (07:45)
[2018-05-18 07:46] VITALS: RESP 16; TEMP 97
--- NOTE | 2018-05-18 09:12 | P.PCN ---
Date of Procedure: 05/18/18 Surgeon: Janice Moctezuma Pathology: none sent Condition: stable Disposition: PACU Description of Procedure: Pre-operative diagnosis: 1- Bilateral occipital neuralgea Post Operative Diagnosis 1- Bilateral occipital neuralgea Procedure: 1- Bilateral occipital nerve block ANESTHESIA: Conscious sedation with Versed. 2mg and fentanyl 100 micrograms EBL: Minimal PROCEDURE INDICATION: The patient with neck pain and headache secondary to occipital neuralgea unresponsive to conservative treatments. PROCEDURE DESCRIPTION / TECHNIQUE: The patient was seen and identified in the preoperative area. Risks, benefits, complications, and alternatives were discussed with the patient, the patient agreed to proceed with the procedure and signed the consent. IV was started. Vital signs remained stable throughout the procedure. Patient was taken to the OR and time out was completed. The patient was placed in the prone position on the procedure table. A pillow was placed under the patients chest to increase the cervical interlaminar space. The cervical area and right occiptial area were prepped with chloraprep. Critical pause was taken. Vital signs were closely monitored during the procedure. Conscious sedation was used during the procedure to decrease patients anxiety. The the occipital exuberance and superior nuchal line were identified on the right side of the occiput. The greater occipital nerve location was estimated to be medial to the occipital artery and one third of the distance between the occipital exuberance and the right mastoid and the lesser occipital nerve was about two thirds of the distance between the occipital exuberance and the right mastoid on the superior nuchal line. I used 25-gauge 1-1/2 inch needle to go through the skin at these 2 points and infiltrate 2.5 MLS of a solution made up of 6 MLS Marcaine 0.5% +10 mg of Decadron. The solution was infiltrated down to the periosteum.The same procedure was repeated on the left side. Patient tolerated procedure well.
[2018-05-18] MEDS ORDERED: IV FLUID CONTINUATION 1,000 ML IV ONE (09:16)
[2018-05-18 09:32] VITALS: BP 144/78; PULSE 49
== END 2018-05-18 09:47 | disposition home or self-care (01) ==
LOC: ORPAIN 07:21
PROVIDERS: ATTEND Anesthesiology
DX: M54.81 Occipital neuralgia (principal); I10 Essential (primary) hypertension
CPT/HCPCS: 64405; J2250; J1100; J3010

== ENCOUNTER → 2019-03-29 | Outpatient (CLI) | payer MEDICARE, OTHER ==
--- NOTE | 2019-03-29 13:00 | XR ---
EXAMINATION TYPE: XR cervical spine comp DATE OF EXAM: 03/29/2019 TECHNIQUE: Frontal, lateral, oblique, swimmers, and open mouth view of the cervical spine are obtaine d. HISTORY: cervical spondylosis w/myelopathy, status post cervical arthrodesis. COMPARISON: None FINDINGS: There is posterior cervical fusion from C3 through C7. There is surgical absence of the pos terior elements. Intervertebral disc space narrowing, anterior osteophytes, and endplate sclerosis is seen. Cervical spine vertebral bodies maintain normal vertebral body heights. Abnormal prevertebral soft tissue swelling. Oblique images demonstrate no significant neural foraminal narrowing. Odontoid is intact. IMPRESSION: Postsurgical changes of C3-C7 and moderate multilevel degenerative disc disease. No verte bral body height loss or malalignment.
== END | disposition home or self-care (01) ==
LOC: RADXRMAIN 12:31
PROVIDERS: ATTEND Neurological Surgery
DX: M50.00 Cervical disc disorder with myelopathy, unspecified cervical region (principal); Z98.1 Arthrodesis status
CPT/HCPCS: 72050

== ENCOUNTER → 2019-11-10 | Outpatient (CLI) | payer MEDICARE, OTHER ==
--- NOTE | 2019-11-13 10:13 | MM ---
Reason for exam: screening (asymptomatic). Last mammogram was performed 2 years ago. History: Patient is postmenopausal and has history of other cancer at age 61. Family history of breast cancer in mother at age 36. Physical Findings: A clinical breast exam by your physician is recommended on an annual basis and results should be correlated with mammographic findings. MG 3D Screening Mammo W/Cad Bilateral CC and MLO view(s) were taken. Prior study comparison: October 27, 2017, bilateral MG 3d screening mammo w/cad. July 27, 2016, bilateral MG 3d screening mammo w/cad. The breast tissue is heterogeneously dense. This may lower the sensitivity of mammography. No significant changes when compared with prior studies. ASSESSMENT: Benign, BI-RAD 2 RECOMMENDATION: Routine screening mammogram of both breasts in 1 year.
== END | disposition home or self-care (01) ==
LOC: RADMAMWWP 11:03
PROVIDERS: ATTEND Internal Medicine
DX: Z12.31 Encounter for screening mammogram for malignant neoplasm of breast (principal)
CPT/HCPCS: 77063; 77067

== ENCOUNTER → 2019-11-14 | Outpatient (CLI) | payer MEDICARE, OTHER ==
--- NOTE | 2019-11-14 19:26 | CT ---
EXAMINATION TYPE: CT chest abdomen wo con DATE OF EXAM: 11/14/2019 COMPARISON: 10/08/2017 HISTORY: 74-year-old female Generalized abdominal pain and loss of appetite. TECHNIQUE: Contiguous axial scanning of the chest and abdomen without IV contrast. Coronal and sagitt al reconstructions performed. CT DLP: 504 mGycm Automated exposure control for dose reduction was used. FINDINGS: CHEST: Heart normal size without pericardial effusion. Aorta normal caliber with bovine configuration to the aortic arch. Mild scattered atherosclerotic rosa cifications especially along the descending thoracic aorta. No thoracic lymph adenopathy by CT size criteria. Mild biapical pleural-parenchymal scarring. 3 mm right middle lobe pulmonary nodule, axial image 43, unchanged. Strandy bibasilar areas of atelectasis. 2 mm peripheral left lower lobe pulmonary nodule, axial image 43, unchanged. No consolidation or pleural effusion. ABDOMEN: Small hiatal hernia. Noncontrast appearance of the liver, adrenal glands, kidneys, spleen, pancreas show no gross abnormal body. Lack of IV contrast does limit assessment of the solid abdominal viscera and vascular structur es. Mild generalized colonic diverticulosis. No pericolonic inflammatory change. Mild stool burden. A few scattered prominent but nonenlarged mesenteric lymph nodes along the left side of the abdomen m easuring up to 5 mm are unchanged. [id number] atherosclerotic calcifications of the infrarenal abdominal aorta without aneurysm. No dilated small bowel, free fluid, or free air. Pelvis is not imaged. BONES: Advanced degenerative disc disease L5-S1. Hypertrophic facet arthropathy is present. Trace grade 1 an terolisthesis L3-L4 unchanged from prior. Moderate degenerative disc disease mid to lower thoracic sp ine. IMPRESSION: 1. A COUPLE PULMONARY NODULES MEASURING UP TO 3 MM REMAIN STABLE COMPATIBLE WITH A BENIGN ETIOLOGY. N O ACUTE PULMONARY PROCESS. 2. SMALL HIATAL HERNIA. 3. MILD GENERALIZED COLONIC DIVERTICULOSIS WITHOUT ACUTE DIVERTICULITIS.
== END | disposition home or self-care (01) ==
LOC: RADCTMAIN 13:54
PROVIDERS: ATTEND Internal Medicine
DX: R91.8 Other nonspecific abnormal finding of lung field (principal); K44.9 Diaphragmatic hernia without obstruction or gangrene; K57.30 Diverticulosis of large intestine without perforation or abscess without bleeding; R91.1 Solitary pulmonary nodule; R63.4 Abnormal weight loss
CPT/HCPCS: 71250; 74150

== ENCOUNTER → 2021-04-02 | Outpatient (CLI) | payer MEDICARE, OTHER ==
--- NOTE | 2021-04-02 16:41 | US ---
EXAMINATION TYPE: US kidneys/renal and bladder DATE OF EXAM: 04/02/2021 COMPARISON: CT 11/14/2019 CLINICAL HISTORY: 76-year-old female CKD Stage 3a N18.31. CKD stage 3 TECHNIQUE: Multiple sonographic images of the kidneys and bladder are obtained. FINDINGS: EXAM MEASUREMENTS: Right Kidney: 9.1 x 4.0 x 3.7 cm Left Kidney: 10.2 x 4.9 x 4.6 cm No hydronephrosis on either side. Bladder: wnl Bilateral Jets seen: Yes IMPRESSION: No hydronephrosis.
== END ==
LOC: RADUSWWP 13:26
PROVIDERS: ATTEND Internal Medicine Nephrology
DX: N18.31 Chronic kidney disease, stage 3a (principal)
CPT/HCPCS: 76770

== ENCOUNTER 2021-10-19 17:07 | Observation (INO) | payer MEDICARE, OTHER ==
[2021-10-19] MEDS ORDERED: METOCLOPRAMIDE 5 MG/ML 2 ML VIAL IVP STA (17:34)
[2021-10-19] MEDS ORDERED: MORPHINE SULFATE 4 MG/ML SYRINGE IV STA (17:34)
[2021-10-19] MEDS ORDERED: NITROGLYCERIN OINT 1 INCH/GM PACKET TOPICAL STA (17:34)
[2021-10-19] MEDS ORDERED: LABETALOL 5 MG/ML VIAL MDV IVP STA ×2 (17:34→19:05)
--- NOTE | 2021-10-19 17:38 | ED ---
General Adult HPI - General Chief complaint: Chest Pain Stated complaint: chest pain Time Seen by Provider: 10/19/21 17:15 Source: patient, EMS, RN notes reviewed Mode of arrival: EMS Limitations: no limitations - History of Present Illness Initial comments: Patient is a pleasant 76-year-old female presenting to the emergency department with concerns for vertigo as well as chest pressure. Patient has had both multiple times previously. Vertigo has been occurring for the past for 5 days. Patient did receive a steroid injection by her doctor that appeared to help however symptoms worsen again today. Patient also does have posterior headache. Patient does have history of this associated with her previous episodes of vertigo. Patient also has associated nausea. Patient also has chest pressure. Patient has had chest pressure before however normally does not last this long. Chest pressure is sternal. - Related Data Home Medications Medication Instructions Recorded Confirmed Bidil 20/37.5mg 1 tab PO TID 10/17/15 05/26/19 Candesartan Cilexetil [Atacand] 16 mg PO BID 10/17/15 05/26/19 Levothyroxine Sodium [Synthroid] 50 mcg PO DAILY 10/17/15 05/26/19 Metoprolol Succinate [Toprol XL] 100 mg PO HS 10/17/15 05/26/19 Simvastatin [Zocor] 20 mg PO DAILY 10/17/15 05/26/19 Gabapentin [Neurontin] 300 mg PO BID 01/26/17 05/26/19 cloNIDine HCL [Catapres] 0.1 mg PO BID 01/27/17 05/26/19 Biotin [Biotin Disolve] 5,000 mcg PO DAILY 09/23/17 05/26/19 Cholecalciferol (Vitamin D3) 2,000 unit PO DAILY 09/23/17 05/26/19 [Vitamin D3] Fluticasone Nasal [place] [Flonase 2 spray EA NOSTRIL DAILY PRN 09/23/17 05/26/19 Nasal [place]] L.acidoph,Paracasei, B.lactis 1 each PO DAILY 09/23/17 05/26/19 [Probiotic] Loratadine [Claritin] 10 mg PO DAILY PRN 09/23/17 05/26/19 Triazolam 0.25 mg PO HS 04/22/18 05/26/19 Acetaminophen [Tylenol] 500 mg PO DAILY PRN 04/25/18 05/26/19 Famotidine 40 mg PO DAILY 05/24/19 05/26/19 Allergies Allergy/AdvReac Type Severity Reaction Status Date / Time adhesive tape Allergy Rash/Hives Verified 05/26/19 12:39 hydrocodone bitartrate Allergy Unknown Verified 05/26/19 12:39 [From Vicodin] ibuprofen [From Motrin] Allergy KIDNEY Verified 05/26/19 12:39 PROBLEMS Iodinated Contrast Media Allergy Rash/Hives Verified 05/26/19 12:39 [Iodinated Contrast Media - IV Dye] latex Allergy Rash/Hives Verified 05/26/19 12:39 Sulfa (Sulfonamide Allergy Dyspnea Verified 05/26/19 12:39 Antibiotics) Review of Systems ROS Statement: Those systems with pertinent positive or pertinent negative responses have been documented in the HPI. ROS Other: All systems not noted in ROS Statement are negative. Constitutional: Denies: fever Eyes: Denies: eye pain ENT: Denies: ear pain Respiratory: Denies: cough Cardiovascular: Reports: as per HPI, chest pain Endocrine: Denies: fatigue Gastrointestinal: Reports: nausea. Denies: abdominal pain Genitourinary: Denies: dysuria Musculoskeletal: Denies: back pain Skin: Denies: rash Neurological: Reports: headache, vertigo. Denies: weakness, confusion Past Medical History Past Medical History: GERD/Reflux, Hyperlipidemia, Hypertension, Renal Disease, Thyroid Disorder Additional Past Medical History / Comment(s): HEAD AND NECK PAIN. DECREASED KIDNEY FUNCTION History of Any Multi-Drug Resistant Organisms: None Reported Past Surgical History: Appendectomy, Back Surgery, Cholecystectomy, Hernia Repair, Hysterectomy, Tonsillectomy Additional Past Surgical History / Comment(s): TIGIST CATARACT SX. COLONOSCOPY/EGD Past Anesthesia/Blood Transfusion Reactions: Previous Problems w/ Anesthesia Additional Past Anesthesia/Blood Transfusion Reaction / Comment(s): diff waking up Past Psychological History: Anxiety Past Alcohol Use History: Rare Past Drug Use History: None Reported - Past Family History Father Family Medical History: Cancer Additional Family Medical History / Comment(s): skin Mother Family Medical History: Cancer Additional Family Medical History / Comment(s): breast Brother(s) Family Medical History: Cancer General Exam Limitations: no limitations General appearance: alert, in no apparent distress Head exam: Present: normocephalic Eye exam: Present: normal appearance, PERRL Neck exam: Present: normal inspection Respiratory exam: Present: normal lung sounds bilaterally. Absent: chest wall tenderness Cardiovascular Exam: Present: regular rate, normal rhythm Expanded Peripheral pulses: 2+: Radial (R), Radial (L), Dorsalis Pedis (R), Dorsalis Pedis (L) GI/Abdominal exam: Present: soft. Absent: tenderness Extremities exam: Present: normal inspection. Absent: pedal edema, calf tenderness Neurological exam: Present: alert, oriented X3, CN II-XII intact. Absent: motor sensory deficit Expanded Neurological exam: Present: protecting the airway Motor strength exam: RUE: 5, LUE: 5, RLE: 5, LLE: 5 Eye Response: (4) open spontaneously Motor Response: (6) obeys commands Verbal Response: (5) oriented Psychiatric exam: Present: normal affect, normal mood Skin exam: Present: normal color Course Vital Signs 10/19/21 10/19/21 10/19/21 17:09 18:02 19:04 Temperature 97.4 F L Pulse Rate 74 65 71 Respiratory 18 24 18 Rate Blood Pressure 192/111 180/113 189/109 O2 Sat by Pulse 98 98 99 Oximetry 10/19/21 19:25 Temperature Pulse Rate 73 Respiratory 20 Rate Blood Pressure 191/100 O2 Sat by Pulse 100 Oximetry EKG Findings - EKG Comments: EKG Findings:: Sinus rhythm with rate of 62. NM 157. QRS 72. QT 432. QTC 438. Left axis. Normal QRS. No acute ST change. Medical Decision Making - Medical Decision Making Patient reevaluated and updated. Patient evaluated several times. Blood pressure medicine given. Chest discomfort has resolved. Patient still with mild headache and additional medicine was given. Reevaluated and further improved. Patient still hypertensive. Patient is due for her Catapres as well as Toprol this will be provided. Patient updated on results and plan. Case discussed with Dr. Lawrence, who will admit covering hospital observation call. - Lab Data Result diagrams: 10/19/21 17:39 10/19/21 17:39 Lab Results 10/19/21 10/19/21 10/19/21 Range/Units 17:39 17:39 17:39 WBC 10.6 (3.8-10.6) k/uL RBC 4.65 (3.80-5.40) m/uL Hgb 14.9 (11.4-16.0) gm/dL Hct 44.6 (34.0-46.0) % MCV 95.8 (80.0-100.0) fL MCH 32.1 (25.0-35.0) pg MCHC 33.5 (31.0-37.0) g/dL RDW 13.9 (11.5-15.5) % Plt Count 381 (150-450) k/uL MPV 7.6 Neutrophils % 70 % Lymphocytes % 20 % Monocytes % 7 % Eosinophils % 1 % Basophils % 0 % Neutrophils # 7.4 (1.3-7.7) k/uL Lymphocytes # 2.1 (1.0-4.8) k/uL Monocytes # 0.8 (0-1.0) k/uL Eosinophils # 0.1 (0-0.7) k/uL Basophils # 0.0 (0-0.2) k/uL PT 9.8 (9.0-12.0) sec INR 0.9 (<1.2) APTT 23.2 (22.0-30.0) sec D-Dimer (<0.60) mg/L FEU Sodium 138 (137-145) mmol/L Potassium 4.0 (3.5-5.1) mmol/L Chloride 107 (98-107) mmol/L Carbon Dioxide 20 L (22-30) mmol/L Anion Gap 11 mmol/L BUN 15 (7-17) mg/dL Creatinine 0.84 (0.52-1.04) mg/dL Est GFR (CKD-EPI)AfAm 78 (>60 ml/min/1.73 sqM) Est GFR (CKD-EPI)NonAf 68 (>60 ml/min/1.73 sqM) Glucose 166 H (74-99) mg/dL Calcium 9.5 (8.4-10.2) mg/dL Magnesium 1.9 (1.6-2.3) mg/dL Total Bilirubin 0.5 (0.2-1.3) mg/dL AST 26 (14-36) U/L ALT 17 (4-34) U/L Alkaline Phosphatase 76 (38-126) U/L Troponin I (0.000-0.034) ng/mL Total Protein 7.4 (6.3-8.2) g/dL Albumin 4.5 (3.5-5.0) g/dL Amylase 73 (30-110) U/L Lipase 202 (23-300) U/L 10/19/21 10/19/21 Range/Units 17:39 17:39 WBC (3.8-10.6) k/uL RBC (3.80-5.40) m/uL Hgb (11.4-16.0) gm/dL Hct (34.0-46.0) % MCV (80.0-100.0) fL MCH (25.0-35.0) pg MCHC (31.0-37.0) g/dL RDW (11.5-15.5) % Plt Count (150-450) k/uL MPV Neutrophils % % Lymphocytes % % Monocytes % % Eosinophils % % Basophils % % Neutrophils # (1.3-7.7) k/uL Lymphocytes # (1.0-4.8) k/uL Monocytes # (0-1.0) k/uL Eosinophils # (0-0.7) k/uL Basophils # (0-0.2) k/uL PT (9.0-12.0) sec INR (<1.2) APTT (22.0-30.0) sec D-Dimer 0.81 H (<0.60) mg/L FEU Sodium (137-145) mmol/L Potassium (3.5-5.1) mmol/L Chloride (98-107) mmol/L Carbon Dioxide (22-30) mmol/L Anion Gap mmol/L BUN (7-17) mg/dL Creatinine (0.52-1.04) mg/dL Est GFR (CKD-EPI)AfAm (>60 ml/min/1.73 sqM) Est GFR (CKD-EPI)NonAf (>60 ml/min/1.73 sqM) Glucose (74-99) mg/dL Calcium (8.4-10.2) mg/dL Magnesium (1.6-2.3) mg/dL Total Bilirubin (0.2-1.3) mg/dL AST (14-36) U/L ALT (4-34) U/L Alkaline Phosphatase (38-126) U/L Troponin I <0.012 (0.000-0.034) ng/mL Total Protein (6.3-8.2) g/dL Albumin (3.5-5.0) g/dL Amylase (30-110) U/L Lipase (23-300) U/L - Radiology Data Radiology results: report reviewed (CT brain shows no acute process. CT chest shows no acute process) Critical Care Time Critical Care Time: Yes Total Critical Care Time: 33 Disposition Clinical Impression: Chest pain, Cephalgia, Vertigo, Hypertensive urgency Disposition: ADMITTED IP TO THIS HOSP Is patient prescribed a controlled substance at d/c from ED?: No Referrals: Mckay Acosta DO [Primary Care Provider] - 1-2 days Time of Disposition: 19:55
[2021-10-19 17:49] LABS: Basophils % (A) 0 %; Eosinophils # (A) 0.1 k/uL (0-0.7); Eosinophils % (A) 1 %; HCT 44.6 % (34.0-46.0); HGB 14.9 gm/dL (11.4-16.0); Lymphocytes # (A) 2.1 k/uL (1.0-4.8); Lymphocytes % (A) 20 %; MCH 32.1 pg (25.0-35.0); MCHC 33.5 g/dL (31.0-37.0); MCV 95.8 fL (80.0-100.0); Mean Platelet Volume 7.6; Monocytes # (A) 0.8 k/uL (0-1.0); Monocytes % (A) 7 %; Neutrophils # (A) 7.4 k/uL (1.3-7.7); Neutrophils % (A) 70 %; Platelet Count 381 k/uL (150-450); RBC 4.65 m/uL (3.80-5.40); RDW 13.9 % (11.5-15.5); WBC 10.6 k/uL (3.8-10.6)
[2021-10-19 17:54] LABS: Albumin 4.5 g/dL (3.5-5.0); Calcium 9.5 mg/dL (8.4-10.2); Magnesium 1.9 mg/dL (1.6-2.3); Total Bilirubin 0.5 mg/dL (0.2-1.3); Total Protein 7.4 g/dL (6.3-8.2)
[2021-10-19 17:59] LABS: INR 0.9 (<1.2); Partial Thromboplastin Time 23.2 sec (22.0-30.0); Prothrombin Time 9.8 sec (9.0-12.0)
[2021-10-19] MEDS ORDERED: methylPREDNISolone SOD SUCCI 125 MG/2 ML VIAL IV STA (18:18)
[2021-10-19] MEDS ORDERED: FAMOTIDINE 20 MG/2 ML VIAL IV STA (18:20)
[2021-10-19] MEDS ORDERED: diphenhydrAMINE 50 MG/ML 1 ML VIAL IVP STA (18:20)
--- NOTE | 2021-10-19 18:22 | XR ---
EXAMINATION TYPE: XR chest 2V DATE OF EXAM: 10/19/2021 COMPARISON: 01/28/2017 HISTORY: Chest pain TECHNIQUE: FINDINGS: Heart is normal. Lungs are clear of infiltrate. No heart failure. There are no hilar masses . Bony thorax is intact. IMPRESSION: No active cardiopulmonary disease. Normal heart. There is clearing of small pleural effus ions to large extent compared to old exam.
[2021-10-19] MEDS ORDERED: MECLIZINE 12.5 MG TAB PO STA (19:04)
[2021-10-19] MEDS ORDERED: MORPHINE SULFATE 4 MG/ML SYRINGE IVP STA (19:04)
--- NOTE | 2021-10-19 19:27 | CT ---
EXAMINATION TYPE: CT brain wo con DATE OF EXAM: 10/19/2021 COMPARISON: None HISTORY: headache CT DLP: 1096.4 mGycm Automated exposure control for dose reduction was used. Ventricles and sulci appear normal. There is no mass effect or midline shift. No sign of intracranial hemorrhage. There is atrophy appropriate for age. Calvarium is intact. There is normal aeration of t he mastoid sinuses. Sella turcica appears normal. IMPRESSION: Negative unenhanced head CT scan.
--- NOTE | 2021-10-19 19:45 | CT ---
EXAMINATION TYPE: CT angio chest DATE OF EXAM: 10/19/2021 COMPARISON: None HISTORY: chest pain, elevated d-dimer CT DLP: 285.1 mGycm Automated exposure control for dose reduction was used. CONTRAST: Performed with IV Contrast, patient injected with 88cc mL of Isovue 370. Images obtained from the thoracic inlet to the diaphragm with IV contrast. There are Three-D postproc essed images. There is some reticular and interstitial density in the mid and lower lung gomez. No pulmonary mass. No pleural effusion. No evidence of pericardial effusion. Heart size is normal. There are no hilar m asses. There is no mediastinal adenopathy. Thoracic aorta is intact. No aneurysm or dissection. There is normal contrast opacification of the pu lmonary arteries. No filling defect. The ascending aorta measures 3.5 cm. No aneurysm or dissection. The thoracic spine is intact. No compression fracture. There is small hiatal hernia. IMPRESSION: No evidence of pulmonary embolism. Mild pulmonary fibrotic changes.
[2021-10-19] MEDS ORDERED: METOPROLOL SUCCINATE (ER) 100 MG TAB.ER.24H PO STA (19:53)
[2021-10-19] MEDS ORDERED: cloNIDine HCL 0.1 MG TAB PO STA (19:53)
[2021-10-19] MEDS ORDERED: hydrALAZINE HCL 20 MG/ML 1 ML VIAL IVP PRN (19:55)
[2021-10-19] MEDS ORDERED: MORPHINE SULFATE 4 MG/ML SYRINGE IV PRN (19:57)
[2021-10-19] MEDS ORDERED: NITROGLYCERIN SL TABS 0.4 MG TAB SUBLINGUAL PRN (19:57)
[2021-10-19] MEDS ORDERED: MECLIZINE 25 MG TAB PO PRN (19:59)
[2021-10-19] MEDS: ASPIRIN 81 MG PO STA ×2 (20:39→20:42)
[2021-10-19] MEDS ORDERED: METOPROLOL SUCCINATE (ER) 100 MG TAB.ER.24H PO SCH (21:00)
[2021-10-19] MEDS ORDERED: ACETAMINOPHEN TAB 325 MG TAB PO PRN (21:27)
[2021-10-19] MEDS ORDERED: ONDANSETRON 4 MG/2 ML VIAL IVP PRN (21:27)
--- NOTE | 2021-10-19 21:28 | P.HPIM ---
History of Present Illness H&P Date: 10/19/21 Chief Complaint: Vertigo, chest pressure 70 [id number] woman with a medical history of BPPV, trigeminal neuralgia, hypertension, hyperlipidemia, hypothyroidism presented for evaluation of vertigo, chest pressure. Patient says that she always has vertigo, however, in the last 5 days, she's noticed in increase in her vertigo symptoms. On , she went to see her neurologist, who did the Shauna maneuver followed by steroid injection. Patient says that her vertigo completely resolved on Wednesday, Wednesday, but then returned quite severely today morning. As her vert igo symptoms became worse throughout the day, she noticed that she had chest pressure, nausea, sweats, and headache associated with this episode. She says that she has been worked up for chest pressure before, but many years ago and cannot remember the conclusion, but denies ever having had heart attacks. She also denies a history of stroke or TIA. Currently, she denies fevers, chills, vomiting, cough, dyspnea, palpitations, syncope, presyncope, abdominal pain, constipation, diarrhea, dysuria, dyschezia, numbness/weakness of extremities. She does report associated tingling/paresthesias in all 4 extremities associated with this episode. Notably, by the time of my evaluation, patient reported resolution of all of her symptoms. In the emergency room, patient was afebrile, 192/111, heart rate 74, 98% on room air. CBC is unremarkable. Chemistries show mild acidosis to bicarb of 20, el evated glucose of 166. LFTs are unremarkable. Troponin was negative. Coags are unremarkable. D-dimer was mildly elevated at 0.81. Chest x-ray did not show any active cardiopulmonary disease, showed a normal heart, showed clearing of small pleural effusions which were present in her [address] was negative for acute cranial pathology. CT angiography did not show any evidence of pulmonary embolism, did show mild pulmonary fibrotic changes. EKG showed normal sinus rhythm without ischemic changes. All Systems reviewed and pertinent positives and negatives noted in HPI, all other symptoms are negative Gen: in no apparent distress, resting comfortably in bed Eyes: PERRL, no scleral injection or icterus HENT: normocephalic, atraumatic, good hearing acuity, moist mucous membranes Neck: no tracheal deviation, full range of motion Resp: good air exchange, breathing comfortably with no accessory muscle use, no tactile fremitus CVS: good distal perfusion x 4, no pitting edema GI: soft, NTTP, ND, no hepatosplenomegaly : no suprapubic tenderness, no CVAT, lewis catheter not present MSK: no clubbing, no cyanosis, no noted contractures of extremities Skin: no noted rashes, petechiae; temperature of skin is appropriate Neuro: moving all extremities without signs of weakness, CN II-XII intact Psych: cooperative, euthymic mood, insight and judgment intact Labs and imaging reviewed as above Assessment/plan: Chest pressure Hypertensive urgency (chest pressure likely related to HTN urgency) -Admit to observation, telemetry -Cardiology consult -Nothing by mouth at midnight in case of stress test -Trend troponins -Aspirin, statin, home dose beta dmitri -EKG/nitro when necessary for chest pain -Echocardiogram -A1c, lipid panel, TSH -resumed clonidine, metoprolol, BiDil, candesartan Vertigo Nausea Headache (related to patient's BPPV) -Meclizine when necessary -Shauna maneuver pamphlet on discharge -Tylenol when necessary -Zofran when necessary Trigeminal neuralgia Hyperlipidemia Hypothyroidism -Home medication reconciliation pending completion of medication history Patient is DO NOT RESUSCITATE/DO NOT INTUBATE DVT prophylaxis with early ambulation Past Medical History Past Medical History: GERD/Reflux, Hyperlipidemia, Hypertension, Renal Disease, Thyroid Disorder Additional Past Medical History / Comment(s): HEAD AND NECK PAIN. DECREASED KIDNEY FUNCTION History of Any Multi-Drug Resistant Organisms: None Reported Past Surgical History: Appendectomy, Back Surgery, Cholecystectomy, Hernia Repair, Hysterectomy, Tonsillectomy Additional Past Surgical History / Comment(s): TIGIST CATARACT SX. COLONOSCOPY/EGD Past Anesthesia/Blood Transfusion Reactions: Previous Problems w/ Anesthesia Additional Past Anesthesia/Blood Transfusion Reaction / Comment(s): diff waking up Past Psychological History: Anxiety Past Alcohol Use History: Rare Past Drug Use History: None Reported - Past Family History Father Family Medical History: Cancer Additional Family Medical History / Comment(s): skin Mother Family Medical History: Cancer Additional Family Medical History / Comment(s): breast Brother(s) Family Medical History: Cancer Medications and Allergies Home Medications Medication Instructions Recorded Confirmed Type Bidil 20/37.5mg 1 tab PO TID 10/17/15 05/26/19 History Candesartan Cilexetil [Atacand] 16 mg PO BID 10/17/15 05/26/19 History Levothyroxine Sodium [Synthroid] 50 mcg PO DAILY 10/17/15 05/26/19 History Metoprolol Succinate [Toprol XL] 100 mg PO HS 10/17/15 05/26/19 History Simvastatin [Zocor] 20 mg PO DAILY 10/17/15 05/26/19 History Gabapentin [Neurontin] 300 mg PO BID 01/26/17 05/26/19 History cloNIDine HCL [Catapres] 0.1 mg PO BID 01/27/17 05/26/19 History Biotin [Biotin Disolve] 5,000 mcg PO DAILY 09/23/17 05/26/19 History Cholecalciferol (Vitamin D3) 2,000 unit PO DAILY 09/23/17 05/26/19 History [Vitamin D3] Fluticasone Nasal [place] [Flonase 2 spray EA NOSTRIL DAILY PRN 09/23/17 05/26/19 History Nasal [place]] L.acidoph,Paracasei, B.lactis 1 each PO DAILY 09/23/17 05/26/19 History [Probiotic] Loratadine [Claritin] 10 mg PO DAILY PRN 09/23/17 05/26/19 History Triazolam 0.25 mg PO HS 04/22/18 05/26/19 History Acetaminophen [Tylenol] 500 mg PO DAILY PRN 04/25/18 05/26/19 History Famotidine 40 mg PO DAILY 05/24/19 05/26/19 History Allergies Allergy/AdvReac Type Severity Reaction Status Date / Time adhesive tape Allergy Rash/Hives Verified 05/26/19 12:39 hydrocodone bitartrate Allergy Unknown Verified 05/26/19 12:39 [From Vicodin] ibuprofen [From Motrin] Allergy KIDNEY Verified 05/26/19 12:39 PROBLEMS Iodinated Contrast Media Allergy Rash/Hives Verified 05/26/19 12:39 [Iodinated Contrast Media - IV Dye] latex Allergy Rash/Hives Verified 05/26/19 12:39 Sulfa (Sulfonamide Allergy Dyspnea Verified 05/26/19 12:39 Antibiotics) Physical Exam Osteopathic Statement: *. No significant issues noted on an osteopathic structural exam other than those noted in the History and Physical/Consult. Vitals: Vital Signs Temp Pulse Resp BP Pulse Ox 10/19/21 20:23 74 20 184/89 97 10/19/21 19:25 73 20 191/100 100 10/19/21 19:04 71 18 189/109 99 10/19/21 18:02 65 24 180/113 98 10/19/21 17:09 97.4 F L 74 18 192/111 98 Intake and Output 10/19/21 10/19/21 10/19/21 06:59 14:59 22:59 Other: Weight 57.606 kg Results CBC & Chem 7: 10/19/21 17:39 10/19/21 17:39 Labs: Abnormal Lab Results - Last 24 Hours (Table) 10/19/21 10/19/21 Range/Units 17:39 17:39 D-Dimer 0.81 H (<0.60) mg/L FEU Carbon Dioxide 20 L (22-30) mmol/L Glucose 166 H (74-99) mg/dL
[2021-10-19] MEDS ORDERED: BIDIL PO SCH (22:00)
[2021-10-19] MEDS: LOSARTAN 50 MG TAB PO SCH (22:09)
[2021-10-19] MEDS: ISOSORBIDE DINITRATE 20 MG TAB PO SCH (22:09)
[2021-10-19] MEDS: hydrALAZINE HCL 25 MG TAB PO SCH (22:09)
[2021-10-19] MEDS: cloNIDine HCL 0.1 MG TAB PO SCH (23:24)
[2021-10-20] MEDS: NITROGLYCERIN OINT 1 INCH/GM PACKET TOPICAL SCH ×2 (01:08→06:11)
[2021-10-20 07:22] VITALS: BP 131/69; PULSE 61; RESP 18; TEMP 98.2
[2021-10-20] MEDS ORDERED: ASPIRIN 325 MG TAB PO SCH (09:00)
[2021-10-20] MEDS ORDERED: ATORVASTATIN 10 MG TAB PO SCH (09:00)
[2021-10-20] MEDS ORDERED: ASPIRIN 81 MG PO SCH (09:00)
[2021-10-20] MEDS ORDERED: LEVOTHYROXINE 50 MCG TAB PO SCH (09:15)
[2021-10-20] MEDS: hydrALAZINE HCL 25 MG TAB PO SCH (09:57)
[2021-10-20] MEDS: cloNIDine HCL 0.1 MG TAB PO SCH (09:57)
[2021-10-20] MEDS: ISOSORBIDE DINITRATE 20 MG TAB PO SCH (09:57)
[2021-10-20] MEDS: LOSARTAN 50 MG TAB PO SCH (09:57)
--- NOTE | 2021-10-20 10:19 | P.CRDCN ---
History of Present Illness History of present illness: HISTORY OF PRESENT ILLNESS: This is a 76-year-old female with a past medical history significant for vertigo, hypertension, and hyperlipidemia. Patient follows in the office with Dr. Abreu. We have been asked to see the patient in consultation for chest pain. Patient examined at the bedside. The patient presented to the hospital yesterday with a chief complaint of chest pain. The patient states that she has vertigo however yesterday she had one of the worst episodes of vertigo that she has had. She checks her blood pressure was found to be significantly elevated with a systolic in the 190s. The patient states that she checks her blood pressure regularly and is usually not elevated. She reports having some pressure in the middle of her chest. She states her pain resolved when her pressure finally got controlled. She reported some nausea but no vomiting. She states that her arms and legs ultimately at that time however this has resolved. She denies any shortness of breath. * EKG reveals sinus mechanism with no signs of acute ischemia * Chest xray negative for acute process * Chest CT: Negative for pulmonary embolism * Laboratory data: WBC 10.6. Hemoglobin 14.9. Platelet count 381. D-dimer 0.81. Sodium 139. Potassium 4.0. BUN 15. Creatinine 0.84. Troponin negative 3. * Current home cardiac medications include Candesartan 16mg BID, simvastatin 20 mg daily, metoprolol succinate 100 mg at night, isosorbide-hydralazine 20- 37.5mg 3 times a day * Most recent echocardiogram obtained in October 2019 revealed ejection fraction of 55%, mild mitral regurgitation, mild tricuspid regurgitation * Patient underwent Lexiscan stress test in October 2019 which was negative for acute ischemia. REVIEW OF SYSTEMS: At the time of my exam: CONSTITUTIONAL: Denies fever or chills. HEENT: Denies blurred vision, vision changes, or eye pain. Denies hemoptysis CARDIOVASCULAR: Denies chest pain. Denies orthopnea. Denies PND. Denies palpitations RESPIRATORY: Denies shortness of breath. GASTROINTESTINAL: Denies abdominal pain. Denies nausea or vomiting. HEMATOLOGIC: Denies bleeding disorders. GENITOURINARY: Denies any blood in urine. SKIN: Denies pruitis. Denies rash. PHYSICAL EXAM: VITAL SIGNS: Reviewed. GENERAL: Well-developed in no acute distress. HEENT: Head is normocephalic. Pupils are equal, round. Sclerae anicteric. Mucous membranes of the mouth are moist. Neck supple. No JVD or thyromegaly LUNGS: Respirations even and unlabored. Lungs essentially clear to auscultation bilaterally. HEART: Regular rate and rhythm. S1 and S2 heard. ABDOMEN: Soft. Nondistended. Nontender. EXTREMITIES: Normal range of motion. No clubbing or cyanosis. Peripheral pulses intact. No lower extremity edema NEUROLOGIC: Awake and alert. Oriented x 3. ASSESSMENT: Vertigo Hypertensive urgency, resolved Chest pain, likely secondary to above, resolved, troponin negative x 3 Hyperlipidemia PLAN: An acute coronary event has been ruled out Resume home cardiac medications Obtain 2-D echo to assess cardiac structure and function The patient may be discharged home today from a cardiac standpoint and follow up on an outpatient basis Nurse practitioner note has been reviewed by physician. Signing provider agrees with the documented findings, assessment, and plan of care. Past Medical History Past Medical History: GERD/Reflux, Hyperlipidemia, Hypertension, Renal Disease, Thyroid Disorder Additional Past Medical History / Comment(s): HEAD AND NECK PAIN. DECREASED KIDNEY FUNCTION History of Any Multi-Drug Resistant Organisms: None Reported Past Surgical History: Appendectomy, Back Surgery, Cholecystectomy, Hernia Repair, Hysterectomy, Tonsillectomy Additional Past Surgical History / Comment(s): TIGIST CATARACT SX. COLONOSCOPY/EGD Past Anesthesia/Blood Transfusion Reactions: Previous Problems w/ Anesthesia Additional Past Anesthesia/Blood Transfusion Reaction / Comment(s): diff waking up Past Psychological History: Anxiety Additional Psychological History / Comment(s): pt lives with her spouse, 1 cat, 1 dog. no medical equipment, no home care services. Smoking Status: Never smoker Past Alcohol Use History: Rare Past Drug Use History: None Reported - Past Family History Father Family Medical History: Cancer Additional Family Medical History / Comment(s): skin Mother Family Medical History: Cancer Additional Family Medical History / Comment(s): breast Brother(s) Family Medical History: Cancer Medications and Allergies Home Medications Medication Instructions Recorded Confirmed Type Candesartan Cilexetil [Atacand] 16 mg PO BID 10/17/15 10/20/21 History Levothyroxine Sodium [Synthroid] 50 mcg PO DAILY 10/17/15 10/20/21 History Metoprolol Succinate [Toprol XL] 100 mg PO HS 10/17/15 10/20/21 History Simvastatin [Zocor] 20 mg PO DAILY 10/17/15 10/20/21 History Biotin [Biotin Disolve] 5,000 mcg PO DAILY 09/23/17 10/20/21 History Fluticasone Nasal [place] [Flonase 2 spray EA NOSTRIL DAILY PRN 09/23/17 10/20/21 History Nasal [place]] L.acidoph,Paracasei, B.lactis 1 cap PO DAILY 09/23/17 10/20/21 History [Probiotic] Triazolam 0.25 mg PO HS PRN 04/22/18 10/20/21 History Famotidine 40 mg PO BID 05/24/19 10/20/21 History Cholecalciferol [Vitamin D3 (25 50 mcg PO DAILY 10/20/21 10/20/21 History Mcg = 1000 Iu)] Cyclobenzaprine [Flexeril] 10 mg PO TID PRN 10/20/21 10/20/21 History DULoxetine HCL [Cymbalta] 20 mg PO DAILY 10/20/21 10/20/21 History Docusate [Colace] 100 mg PO DAILY 10/20/21 10/20/21 History Isosorbide Dinit/Hydralazine 1 tab PO TID 10/20/21 10/20/21 History [Bidil 20 mg-37.5 mg Tablet] Magnesium 250 mg PO DAILY 10/20/21 10/20/21 History Meclizine [Antivert] 25 mg PO TID PRN 10/20/21 10/20/21 History Ubidecarenone [Co Q-10] 300 mg PO DAILY 10/20/21 10/20/21 History Allergies Allergy/AdvReac Type Severity Reaction Status Date / Time adhesive tape Allergy Rash/Hives Verified 05/26/19 12:39 hydrocodone bitartrate Allergy Unknown Verified 05/26/19 12:39 [From Vicodin] ibuprofen [From Motrin] Allergy KIDNEY Verified 05/26/19 12:39 PROBLEMS Iodinated Contrast Media Allergy Rash/Hives Verified 05/26/19 12:39 [Iodinated Contrast Media - IV Dye] latex Allergy Rash/Hives Verified 05/26/19 12:39 Sulfa (Sulfonamide Allergy Dyspnea Verified 05/26/19 12:39 Antibiotics) Physical Exam Vitals: Vital Signs Temp Pulse Pulse Resp BP BP Pulse Ox 10/20/21 07:00 98.2 F 61 18 131/69 97 10/20/21 02:24 118/68 10/20/21 01:54 60 16 10/20/21 01:01 97.6 F 65 15 110/62 95 10/19/21 23:23 73 16 135/71 10/19/21 22:18 75 10/19/21 21:37 75 18 218/106 97 10/19/21 21:00 76 20 190/90 98 10/19/21 20:23 74 20 184/89 97 10/19/21 19:25 73 20 191/100 100 10/19/21 19:04 71 18 189/109 99 10/19/21 18:02 65 24 180/113 98 10/19/21 17:09 97.4 F L 74 18 192/111 98 Intake and Output 10/19/21 10/20/21 10/20/21 22:59 06:59 14:59 Intake Total 250 Balance 250 Intake: Oral 250 Other: # Voids 1 Weight 57.606 kg Results 10/19/21 17:39 10/19/21 17:39 Cardiac Enzymes 10/19/21 10/19/21 10/19/21 Range/Units 17:39 17:39 20:36 AST 26 (14-36) U/L Troponin I <0.012 <0.012 (0.000-0.034) ng/mL 10/19/21 Range/Units 23:28 AST (14-36) U/L Troponin I <0.012 (0.000-0.034) ng/mL Coagulation 10/19/21 Range/Units 17:39 PT 9.8 (9.0-12.0) sec APTT 23.2 (22.0-30.0) sec CBC 10/19/21 Range/Units 17:39 WBC 10.6 (3.8-10.6) k/uL RBC 4.65 (3.80-5.40) m/uL Hgb 14.9 (11.4-16.0) gm/dL Hct 44.6 (34.0-46.0) % Plt Count 381 (150-450) k/uL Comprehensive Metabolic Panel 06/05/22 Range/Units 17:39 Sodium 138 (137-145) mmol/L Potassium 4.0 (3.5-5.1) mmol/L Chloride 107 (98-107) mmol/L Carbon Dioxide 20 L (22-30) mmol/L BUN 15 (7-17) mg/dL Creatinine 0.84 (0.52-1.04) mg/dL Glucose 166 H (74-99) mg/dL Calcium 9.5 (8.4-10.2) mg/dL AST 26 (14-36) U/L ALT 17 (4-34) U/L Alkaline Phosphatase 76 (38-126) U/L Total Protein 7.4 (6.3-8.2) g/dL Albumin 4.5 (3.5-5.0) g/dL Current Medications Generic Name Dose Route Start Last Admin Trade Name Freq PRN Reason Stop Dose Admin Acetaminophen 650 mg 10/19/21 21:27 Acetaminophen Tab 325 Mg Tab PO Q4HR PRN Fever and/ or Pain Aspirin 81 mg 10/20/21 09:00 Aspirin 81 Mg PO DAILY [facility] Atorvastatin Calcium 10 mg 10/20/21 09:00 Atorvastatin 10 Mg Tab PO DAILY ANIVAL Clonidine 0.1 mg 10/19/21 21:00 10/19/21 23:24 Clonidine Hcl 0.1 Mg Tab PO Not Given BID [facility] Hydralazine HCl 10 mg 10/19/21 19:55 Hydralazine Hcl 20 Mg/Ml 1 Ml Vial IVP Q4HR PRN Blood Pressure - High Hydralazine HCl 37.5 mg 10/19/21 22:00 10/19/21 22:09 Hydralazine Hcl 25 Mg Tab PO 37.5 mg TID ANIVAL Administration Isosorbide Dinitrate 20 mg 10/19/21 22:00 10/19/21 22:09 Isosorbide Dinitrate 20 Mg Tab PO 20 mg TID ANIVAL Administration Losartan Potassium 150 mg 10/19/21 21:00 10/19/21 22:09 Losartan 50 Mg Tab PO 150 mg BID ANIVAL Administration Meclizine HCl 25 mg 10/19/21 19:59 Meclizine 25 Mg Tab PO QID PRN Vertigo Metoprolol Succinate 100 mg 10/19/21 21:00 10/19/21 22:08 Metoprolol Succinate (Er) 100 Mg Tab.Er.24h PO 100 mg HS ANIVAL Administration Morphine Sulfate 4 mg 10/19/21 19:57 Morphine Sulfate 4 Mg/Ml Syringe IV Q5M PRN Chest Pain Nitroglycerin 0.4 mg 10/19/21 19:57 Nitroglycerin Sl Tabs 0.4 Mg Tab SUBLINGUAL Q5M PRN Chest Pain Ondansetron HCl 4 mg 10/19/21 21:27 Ondansetron 4 Mg/2 Ml Vial IVP Q6HR PRN Nausea And Vomiting Intake and Output 10/19/21 10/20/21 10/20/21 22:59 06:59 14:59 Intake Total 250 Balance 250 Intake: Oral 250 Other: # Voids 1 Weight 57.606 kg 10/19/21 17:39 10/19/21 17:39
[2021-10-20 11:20] LABS: Chol/HDL Ratio 3.46 Ratio
--- NOTE | 2021-10-20 11:59 | CA ---
Transthoracic Echo Report Name: Heike Araiza Age: 76 Gender: F : 1945 Exam Date: 10/20/2021 10:20 Exam Location: [facility] Ht (in): 63 Wt (lb): 127 Ordering Physician: Lexus Patel Attending/Referring Phys: [id number], Jorge [employer] Josefa De Paz RDCS Procedure CPT: Indications: LV function Cardiac Hx: Technical Quality: Fair Contrast 1: Total Dose (mL): Contrast 2: Total Dose (mL): MEASUREMENTS (Male / Female) Normal Values 2D ECHO LV Diastolic Diameter PLAX 3.6 cm 4.2 - 5.9 / 3.9 - 5.3 cm LV Systolic Diameter PLAX 2.2 cm IVS Diastolic Thickness 1.1 cm 0.6 - 1.0 / 0.6 - 0.9 cm LVPW Diastolic Thickness 1.5 cm 0.6 - 1.0 / 0.6 - 0.9 cm LV Relative Wall Thickness 0.7 RV Internal Dim ED PLAX 2.6 cm LA Volume 61.3 cm??? 18 - 58 / 22 - 52 cm??? M-MODE Aortic Root Diameter MM 3.5 cm LA Systolic Diameter MM 2.9 cm LA Ao Ratio MM 0.8 AV Cusp Separation MM 2.0 cm DOPPLER AV Peak Velocity 125.8 cm/s AV Peak Gradient 6.3 mmHg LVOT Peak Velocity 106.3 cm/s LVOT Peak Gradient 4.5 mmHg MV Area PHT 2.7 cm??? Mitral E Point Velocity 105.5 cm/s Mitral A Point Velocity 145.8 cm/s Mitral E to A Ratio 0.7 MV Deceleration Time 283.8 ms MV E' Velocity 4.7 cm/s Mitral E to MV E' Ratio 22.3 TR Peak Velocity 269.6 cm/s TR Peak Gradient 29.1 mmHg Right Ventricular Systolic Press 34.1 mmHg FINDINGS Left Ventricle Mildly increased left ventricular wall thickness. Normal left ventricular systolic function with no obvious regional wall motion abnormalities. Left ventricular ejection fraction is estimated at 55-60 %. Normal left ventricular diastolic filling pattern. Right Ventricle Normal right ventricular size and function. Right ventricular systolic pressure within normal limits. Right Atrium Normal right atrial size. Left Atrium Mildly increased left atrial volume. Mildly increased left atrial area. No evidence for an atrial septal defect. Mitral Valve Mitral annular calcification. Mild mitral regurgitation. Aortic Valve Aortic valve sclerosis. No aortic valve stenosis or regurgitation. Tricuspid Valve Structurally normal tricuspid valve. Mild tricuspid regurgitation. Pulmonic Valve Structurally normal pulmonic valve. Trace pulmonic regurgitation. Pericardium No pericardial effusion. Aorta Normal size aortic root and proximal ascending aorta. CONCLUSIONS #1. Normal left ankle size and function with mild concentric hypertrophy #2. Mild mitral and tricuspid regurgitation Previewed by: Dr. Shahbaz Abreu MD (Electronically Signed) Final Date: 20 October 2021 11:57
--- NOTE | 2021-10-20 14:36 | P.DS ---
Providers Date of admission: 10/19/21 19:57 Expected date of discharge: 10/20/21 Attending physician: Tiffany Ren MD Primary care physician: Mckay [place] Hospital Course: Discharge Diagnosis: Chest pressure, acute coronary event ruled out Hypertensive urgency, (chest pressure likely related to HTN urgency). Blood pressure controlled and normotensive, chest pressure resolved. Vertigo Nausea Headache Trigeminal neuralgia Hyperlipidemia Hypothyroidism Hospital Course: 76-year-old woman with a medical history of BPPV, trigeminal neuralgia, hypertension, hyperlipidemia, hypothyroidism presented for evaluation of vertigo, chest pressure. Patient says that she always has vertigo, however, in the last 5 days, she's noticed in increase in her vertigo symptoms. On , she went to see her neurologist, who did the Shauna maneuver followed by steroid injection. Patient says that her vertigo completely resolved on Wednesday, Wednesday, but then returned quite severely the morning she came to the hospital. Patient reported that her vertigo symptoms became worse throughout the day and were then accompanied by chest pressure, nausea, sweats, and headache. Patient underwent full evaluation in the emergency department. Upon arrival she was found to be in hypertensive urgency with blood pressure of 192/111. EKG showing normal sinus rhythm at 62 bpm with no noted T-wave or ST abnormalities. Chest x-ray negative for acute cardiopulmonary process. CT head negative for acute intracranial process. CBC and CMP were unremarkable. Troponin negative at less than 0.012. D-dimer was slightly elevated at 0.81. CTA chest completed negative for pulmonary emboli revealing mild pulmonary fibrotic changes. Patient was admitted under our services with consultation to cardiology. Troponins trended overnight all negative at less than 0.0123 draws. Lipid profile unremarkable. Echocardiogram completed showing normal EF of 55-60% with mild mitral and tricuspid regurgitation. Cardiology recommending outpatient follow-up in the office. Patient's blood pressure significantly improved throughout the night and is stable with most recent blood pressure 131/69. Patient is medically stable for discharge home at this time. Physical examination: Patient seen and examined at bedside. Vital signs reviewed and stable. General: Nontoxic, no distress and appears stated age. Derm: Skin warm and dry, normal coloration for ethnicity. Head: Atraumatic, normocephalic and symmetric. Eyes: EOMs intact, no lid lag, and anicteric sclera Mouth: no lip lesions, mucus membranes moist Cardiovascular: regular rate and rhythm with normal S1S2, no murmur, positive posterior tibial pulses bilaterally, and cap refill < 2 seconds. Lungs: Respirations even, regular, and unlabored on room air. Lungs CTA bilaterally, no rhonchi, no rales, no wheezing, and no accessory muscle usage. Abdominal: soft, nontender to palpation, no guarding, no appreciable organomegaly Ext: ROM intact. No gross muscle atrophy, no edema, no contractures Neuro: Speech clear, face symmetrical and CN II-XII grossly intact with no noted focal neuro deficits Psych: Alert and oriented to person, place, time, and situation. Appropriate and pleasant affect. A total of 35 minutes of time were spent preparing this complex discharge summary. Pt was discharged on 10/20/21 at 2:25 PM. Patient Condition at Discharge: Stable Plan - Discharge Summary Discharge Rx Participant: No New Discharge Prescriptions: Continue Simvastatin [Zocor] 20 mg PO DAILY Levothyroxine Sodium [Synthroid] 50 mcg PO DAILY Metoprolol Succinate [Toprol XL] 100 mg PO HS Candesartan Cilexetil [Atacand] 16 mg PO BID Fluticasone Nasal [place] [Flonase Nasal [place]] 2 spray EA NOSTRIL DAILY PRN PRN Reason: Allergy Symptoms L.acidoph,Paracasei, B.lactis [Probiotic] 1 cap PO DAILY Biotin [Biotin Disolve] 5,000 mcg PO DAILY Triazolam 0.25 mg PO HS PRN PRN Reason: Insomnia Famotidine 40 mg PO BID Docusate [Colace] 100 mg PO DAILY Cholecalciferol [Vitamin D3 (25 Mcg = 1000 Iu)] 50 mcg PO DAILY Magnesium 250 mg PO DAILY DULoxetine HCL [Cymbalta] 20 mg PO DAILY Cyclobenzaprine [Flexeril] 10 mg PO TID PRN PRN Reason: Muscle Spasm Meclizine [Antivert] 25 mg PO TID PRN PRN Reason: Vertigo Ubidecarenone [Co Q-10] 300 mg PO DAILY Isosorbide Dinit/Hydralazine [Bidil 20 mg-37.5 mg Tablet] 1 tab PO TID Discharge Medication List Candesartan Cilexetil [Atacand] 16 mg PO BID 10/17/15 [History] Levothyroxine Sodium [Synthroid] 50 mcg PO DAILY 10/17/15 [History] Metoprolol Succinate [Toprol XL] 100 mg PO HS 10/17/15 [History] Simvastatin [Zocor] 20 mg PO DAILY 10/17/15 [History] Biotin [Biotin Disolve] 5,000 mcg PO DAILY 09/23/17 [History] Fluticasone Nasal [place] [Flonase Nasal [place]] 2 spray EA NOSTRIL DAILY PRN 09/23/17 [History] L.acidoph,Paracasei, B.lactis [Probiotic] 1 cap PO DAILY 09/23/17 [History] Triazolam 0.25 mg PO HS PRN 04/22/18 [History] Famotidine 40 mg PO BID 05/24/19 [History] Cholecalciferol [Vitamin D3 (25 Mcg = 1000 Iu)] 50 mcg PO DAILY 10/20/21 [History] Cyclobenzaprine [Flexeril] 10 mg PO TID PRN 10/20/21 [History] DULoxetine HCL [Cymbalta] 20 mg PO DAILY 10/20/21 [History] Docusate [Colace] 100 mg PO DAILY 10/20/21 [History] Isosorbide Dinit/Hydralazine [Bidil 20 mg-37.5 mg Tablet] 1 tab PO TID 10/20/21 [History] Magnesium 250 mg PO DAILY 10/20/21 [History] Meclizine [Antivert] 25 mg PO TID PRN 10/20/21 [History] Ubidecarenone [Co Q-10] 300 mg PO DAILY 10/20/21 [History] Follow up Appointment(s)/Referral(s): Mckay Acosta DO [Primary Care Provider] - 1-2 days Shahbaz Abreu MD [STAFF PHYSICIAN] - 1 Week Activity/Diet/Wound Care/Special Instructions: Activity: As tolerated. Take breaks as needed. Diet: Heart healthy and carb consistent diet. Avoid salts, or foods with hidden salts such as canned or boxed foods and frozen dinners. Extra salt makes your heart work harder and traps the fluid in your body for longer. Special Instructions: Take all of your medications as directed and remember to keep all of your doctor's appointments and follow-up as needed. Thank you for allowing us to participate in your care, it was truly a pleasure having you for our patient!!! Discharge Disposition: HOME SELF-CARE
== END 2021-10-20 15:35 | disposition home or self-care (01) ==
LOC: EC 17:07 → 6NMEDSUR 19:57
PROVIDERS: ADMIT Internal Medicine; ATTEND Internal Medicine
DX: R07.89 Other chest pain (principal); I16.0 Hypertensive urgency; H81.10 Benign paroxysmal vertigo, unspecified ear; G50.0 Trigeminal neuralgia; E78.5 Hyperlipidemia, unspecified; I42.2 Other hypertrophic cardiomyopathy; I08.1 Rheumatic disorders of both mitral and tricuspid valves; E03.9 Hypothyroidism, unspecified; E87.2 Acidosis; I10 Essential (primary) hypertension; F41.9 Anxiety disorder, unspecified; R73.9 Hyperglycemia, unspecified; E07.9 Disorder of thyroid, unspecified; N28.9 Disorder of kidney and ureter, unspecified; K21.9 Gastro-esophageal reflux disease without esophagitis; M54.2 Cervicalgia; Z79.890 Hormone replacement therapy; Z79.899 Other long term (current) drug therapy; Z66 Do not resuscitate; Z91.048 Other nonmedicinal substance allergy status; Z88.5 Allergy status to narcotic agent; Z88.6 Allergy status to analgesic agent; Z91.040 Latex allergy status; Z96.1 Presence of intraocular lens; Z98.41 Cataract extraction status, right eye; Z98.42 Cataract extraction status, left eye; Z88.2 Allergy status to sulfonamides; Z90.49 Acquired absence of other specified parts of digestive tract; Z90.710 Acquired absence of both cervix and uterus; Z80.8 Family history of malignant neoplasm of other organs or systems; Z80.3 Family history of malignant neoplasm of breast
CPT/HCPCS: 99285; 96376; 96374; 96375; 36415; 93005; 93306; 85379; 80061; 80053; 82150; 83690; 83735; 84484; 85025; 85610; 85730; 71046; 70450; 71275; G0378 ×2; J2270; J1200; J2765; J2930; Q9967

== ENCOUNTER 2021-12-05 06:32 | Day surgery (SDC) | payer MEDICARE, OTHER ==
[2021-12-03 11:12] VITALS: BMI 22.4
[~2021-12-05 06:32] MED LIST changes: +LACTATED RINGERS 1,000 ML IV SCH; +LIDOCAINE 1% (10MG/ML) FOR IV START INTRADERMA PRN; -SODIUM CHLORIDE 0.9% 500 ML 500 ML IV SCH
[2021-12-05] MEDS ORDERED: LACTATED RINGERS 1,000 ML IV ONE (06:50)
[2021-12-05 06:51] VITALS: TEMP 97.3
[2021-12-05] MEDS ORDERED: PROPOFOL 10 MG/ML 20 ML VIAL IV ONE (07:23)
[2021-12-05] MEDS ORDERED: LIDOCAINE 2% INJ 20 MG/ML (2 ML VIAL) ONE (07:23)
--- NOTE | 2021-12-05 07:55 | P.PCN ---
Date of Procedure: 12/05/21 Procedure(s) Performed: Brief history: Patient is a pleasant 76-year-old white female scheduled for an elective upper endoscopy as well as colonoscopy as a part of evaluation of GERD and screening for colon cancer Procedure performed: Esophagogastroduodenoscopy Colonoscopy with snare polypectomy Preoperative diagnosis: GERD and screening for colon Anesthesia: MAC Procedure: After informed consent was obtained from the patient was brought into the endoscopy unit and IV sedation was administered by anesthesia under continuous monitoring. Initially upper endoscopy was done. The Olympus GF 160 video endoscope was inserted inserted into the mouth and esophagus intubated without any difficulty and was gradually advanced into the stomach and duodenum and carefully examined. The bulb and second part of the duodenum appeared normal. The scope was then withdrawn into the stomach adequately insufflated with air and upon careful examination the antrum and body, cardia and fundus appeared normal. The scope was then withdrawn into the esophagus. The GE junction was located at 37 cm to the incisors. Small sliding Hiatal hernia noted. It appeared regular with no erythema erosions or ulcerations. Rest of the esophagus appeared normal. Patient tolerated the procedure well. At this time the patient continued to remain sedation. Initial digital rectal examination was normal. Olympus CF 160 video colonoscope was then inserted into the rectum and gradually advanced to the cecum without any difficulty. Careful examination was performed as the scope was gradually being withdrawn. The prep was excellent. The cecum, a normal. In the ascending colon there was a 1 cm polyp removed by snare polypectomy. There were 4 other small polyps in the ascending colon should be seen for a 5 mm in size removed by snare polypectomy. In the transverse colon there was a 5 mm 2 polyps removed by snare polypectomy. In the sigmoid: There was a 5 mm and 7 mm polyp removed by snare polypectomy. Rest of the descending colon, sigmoid colon and rectum appeared normal. Retroflexion was performed in the rectum and no lesions were noted. scattered sigmoid diverticula seen. Patient tolerated the procedure well. Impression: 1. Upper endoscopy revealed small hiatal hernia but no evidence of esophagitis or Soliz's esophagus 2. Colonoscopy revealed: a) 1 cm ascending colon polyp status post polypectomy b) 4 polyps in the ascending colon measuring between 4-5 mm in size status post polypectomy c) 5 mm 2 transverse colon polyp status post polypectomy d) 5 mm and 7 mm; polyp status post polypectomy e) scattered sigmoid diverticulosis Recommendations: Findings of this examination were discussed with the patient as well as her family. She was advised to continue with Pepcid 20 mg daily and follow antireflux measures. She will follow with the biopsy results and if the biopsy results adenoma she can have a repeat colonoscopy in 3 years.
[2021-12-05 08:05] VITALS: RESP 16
[2021-12-05 08:27] VITALS: BP 166/88; PULSE 57
== END 2021-12-05 08:48 | disposition home or self-care (01) ==
LOC: ORWHC2ENDO 06:32
PROVIDERS: ATTEND Internal Medicine Gastroenterology
DX: Z12.11 Encounter for screening for malignant neoplasm of colon (principal); D12.2 Benign neoplasm of ascending colon; D12.5 Benign neoplasm of sigmoid colon; D12.3 Benign neoplasm of transverse colon; K44.9 Diaphragmatic hernia without obstruction or gangrene; K57.30 Diverticulosis of large intestine without perforation or abscess without bleeding; K21.9 Gastro-esophageal reflux disease without esophagitis; I10 Essential (primary) hypertension; E78.5 Hyperlipidemia, unspecified; N28.9 Disorder of kidney and ureter, unspecified; E07.9 Disorder of thyroid, unspecified; F41.9 Anxiety disorder, unspecified; Z88.2 Allergy status to sulfonamides; Z88.6 Allergy status to analgesic agent; Z88.5 Allergy status to narcotic agent; Z91.041 Radiographic dye allergy status; Z91.040 Latex allergy status; Z91.09 Other allergy status, other than to drugs and biological substances; Z79.899 Other long term (current) drug therapy; Z79.890 Hormone replacement therapy; Z80.3 Family history of malignant neoplasm of breast; Z80.8 Family history of malignant neoplasm of other organs or systems
CPT/HCPCS: 88305; 45385; 43235; J2704; J2001

== ENCOUNTER → 2022-05-01 | Outpatient (CLI) | payer MEDICARE, OTHER ==
--- NOTE | 2022-05-01 15:58 | US ---
EXAMINATION TYPE: US kidneys/renal and bladder DATE OF EXAM: 05/01/2022 COMPARISON: US April 02, 2021 CLINICAL HISTORY: N18.31 CHRONIC KIDNEY DISEASE, STAGE 3A. CKD stage 3A. Hx of bladder suspension. EXAM MEASUREMENTS: Right Kidney: 9.5 x 4.4 x 3.7 cm Left Kidney: 10.9 x 4.8 x 4.8 cm Right Kidney: No hydronephrosis or masses seen Left Kidney: No hydronephrosis or masses seen Bladder: Appears adequately distended. Bilateral Jets seen: Yes Increased cortical echogenicity bilaterally. IMPRESSION: No hydronephrosis is noted bilaterally.
== END | disposition home or self-care (01) ==
LOC: RADUSWWP 14:29
PROVIDERS: ATTEND Internal Medicine Nephrology
DX: N18.31 Chronic kidney disease, stage 3a (principal)
CPT/HCPCS: 76770

== ENCOUNTER → 2022-10-21 | Outpatient (CLI) | payer MEDICARE, OTHER ==
--- NOTE | 2022-10-21 11:30 | US ---
EXAMINATION TYPE: US extremity nonvasc mass LT DATE OF EXAM: 10/21/2022 COMPARISON: NONE CLINICAL INDICATION: Female, 77 years old with history of R22.9 LOCALIZED SWELLING, MASS AND LUMP, UN SPECIFI; Lump/edema left upper arm near shoulder/back TECHNIQUE: Multiple grayscale and color Doppler ultrasound images of the left upper extremity in the patient's region of palpable abnormality. FINDINGS/IMPRESSION: Scanned within area of concern, left upper arm, isoechoic structure noted = 4. 8 x 1.8 x 4.0 cm. This demonstrates striated appearance with well-circumscribed margins and no advisory internship al color flow. 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
== END | disposition home or self-care (01) ==
LOC: RADUSWWP 10:56
PROVIDERS: ATTEND Family Medicine
DX: M79.89 Other specified soft tissue disorders (principal)

== ENCOUNTER → 2022-11-03 | Outpatient (CLI) | payer MEDICARE, OTHER ==
--- NOTE | 2022-11-04 08:18 | US ---
EXAMINATION TYPE: US venous doppler duplex UE LT DATE OF EXAM: 11/03/2022 COMPARISON: NONE CLINICAL INDICATION: Female, 77 years old with history of R22.32 LOCALIZED SWELLING, MASS AND LUMP, L EFT UPPER LIMB; Mass on left upper arm. Pt states it is a lipoma and dr wants to look at vascularity in arm now. SIDE PERFORMED: Left Left Arm: No evidence for DVT. Cephalic vein not visualized. The arterial system was not evaluated at this time. IMPRESSION: 1. Left upper extremity ultrasound negative for deep venous thrombosis.
== END | disposition home or self-care (01) ==
LOC: RADUSWWP 16:01
PROVIDERS: ATTEND Family Medicine
DX: R22.32 Localized swelling, mass and lump, left upper limb (principal)

== ENCOUNTER → 2023-02-01 | Outpatient (CLI) | payer MEDICARE, OTHER ==
--- NOTE | 2023-02-01 16:32 | BD ---
EXAMINATION TYPE: Axial Bone Density DATE OF EXAM: 02/01/2023 CLINICAL HISTORY: 78 years old Female. ICD-10 CODE: Z13.820 OSTEOPOROSIS Height: 62.25" Weight: 122.5lbs FRAX RISK QUESTIONS: Alcohol (3 or more units per day): No Family History (Parent hip fracture): No Glucocorticoids (More than 3mos): No (Ex: prednisone, prednisolone, methylprednisolone, dexamethasone, and hydrocortisone). History of Fracture in Adulthood: Yes, right foot Secondary Osteoporosis: 1. Type 1 Diabetes: No 2. Hyperthyroidism: No 3. Menopause before 45: Yes, partial hysterectomy at age 36 4. Malnutrition: No 5. Chronic liver disease: No Rheumatoid Arthritis: No Current Tobacco Use: No RISK FACTORS HISTORY OF: Hip Fracture (Right/Left): No Spine Fracture: No History of Wrist Fracture: No Surgery to Spine/Hip(right/left)/Wrist (right/left): Bone spurs removed from lower back in 1992 Family History of Osteoporosis: Yes, sister, possibly mother and father Active: Yes Diet low in dairy products/other sources of calcium: No Postmenopausal woman: Yes Lost more than 2 inches in height since high school: No Frequent falls: No Poor Health: No Hyperparathyroidism: No Adrenal Insufficiency: Pt states moderate kidney function, kidney damage from hypertension MEDICATIONS: Prednisone or other steroids: No Thyroid Medications: Which medication: Synthroid How Long: Over 5 years Osteoporosis Medications: No Additional Medications: Blood pressure meds, cholesterol meds, acid reflux medication, Synthroid, Vit giraldo D, Vitamin C, Zinc, immunity vitamin Additional History: None EXAM MEASUREMENTS: Bone mineral densitometry was performed using the [employer] With [employer] System. Bone mineral density about the R hip (g/cm2): 0.891 Bone mineral density about the L hip (g/cm2): 0.937 T Score values are as follows: -----R Neck: -1.6 -----L Neck: -1.4 -----R Total: -0.9 -----L Total: -0.6 Z Score values are as follows: -----R Neck: 0.6 -----L Neck: 0.9 -----R Total: 1.2 -----L Total: 1.6 Bone mineral density has: DECREASED -4.7% since study of: 10/27/2017 Bone mineral density about the L Wrist (g/cm2): 0.489 T Score values are as follows: -----Dist. R+U: -3.1 -----Prox. R+U: -2.6 -----Radius total: -3.1 Z Score values are as follows: -----Dist. R+U: -0.5 -----Prox. R+U: -0.1 -----Radius total: -0.5 Bone mineral density has: DECREASED -1.8% since study of: 10/27/2017 FRAX%s: The graph provided illustrates a 18.1% chance for a major osteoporotic fx and a 4.2% chance f or the hips probability for fx in 10 years time. IMPRESSION: Osteoporosis (T Score less than -2.5). There is increased fracture risk and therapy is usually indicated based on age. Re-Screen 1-2 years. NOTE: T-SCORE=SD OF THE YOUNG ADULT MEAN.
--- NOTE | 2023-02-02 15:19 | MM ---
Reason for Exam: Screening (asymptomatic). Last mammogram was performed 3 year(s) and 3 month(s) ago. Patient History: Menarche at age 13. First Full-Term at age 20. Hysterectomy at age 32. Postmenopausal. Other cancer, age 61. Mother had breast cancer, age 36. Risk Values: Kareen 5 year model risk: 3.3%. NCI Lifetime model risk: 5.9%. Prior Study Comparison: 07/27/2016 Bilateral Screening Mammogram, [facility]. 10/27/2017 Bilateral Screening Mammogram, [facility]. 11/10/2019 Bilateral Screening Mammogram, [facility]. Tissue Density: The breast tissue is heterogeneously dense. This may lower the sensitivity of mammography. Findings: Analyzed By CAD. Pattern appears symmetrical and stable. There are benign vascular calcifications present bilaterally. No significant interval changes are evident. No suspicious groups of microcalcifications, spiculated or lobular masses, architectural distortion or other secondary signs of malignancy are mammographically apparent. Overall Assessment: Benign, BI-RAD 2 Management: Screening Mammogram of both breasts in 1 year. A negative mammogram report should not preclude additional follow up of suspicious palpable abnormalities. Patient should continue monthly self breast exam. A clinical breast exam by your physician is recommended on an annual basis and results should be correlated with mammographic findings. Electronically signed and approved by: Mckay Awad D.O. Radiologis
== END | disposition home or self-care (01) ==
LOC: RADMAMWWP 14:49
PROVIDERS: ATTEND Family Medicine
DX: Z12.31 Encounter for screening mammogram for malignant neoplasm of breast (principal); Z13.820 Encounter for screening for osteoporosis; M85.89 Other specified disorders of bone density and structure, multiple sites; M81.0 Age-related osteoporosis without current pathological fracture; Z78.0 Asymptomatic menopausal state; Z80.3 Family history of malignant neoplasm of breast
CPT/HCPCS: 77063; 77067; 77080

== ENCOUNTER → 2023-03-31 | Outpatient (CLI) | payer MEDICARE, OTHER ==
--- NOTE | 2023-04-04 21:34 | MR ---
EXAMINATION TYPE: MR brain and iac wo/w con DATE OF EXAM: 03/31/2023 COMPARISON: Correlation MRI 03/16/2018 HISTORY: 78-year-old female R42, dizziness TECHNIQUE: Multiplanar, multisequence images of the brain and brainstem were acquired before and aft er administration of 5.5 mL IV Gadavist. Diffusion weighted imaging was performed. Additional coned -down sequences through the internal auditory canals and posterior cranial fossa before and after IV contrast administration. FINDINGS: Diffusion weighted images demonstrate no evidence of an acute ischemic lesion in the brain. T2/FLAIR weighted sequences show moderate scattered bright signal foci throughout the subcortical and deep white matter regions of both cerebral hemispheres, unchanged from 2018. There is a tiny 3 mm hypoenhancing focus within the left anterior pituitary gland, unchanged from 201 8. Otherwise, midline structures demonstrate normal morphology. The craniocervical junction is carly l. Brain volume is age appropriate. The ventricles are of normal caliber. There is no evidence of an acute intracranial hemorrhage, infarct, mass, mass-effect or an extra-axia l fluid collection. There is no cerebellopontine angle mass. The internal auditory canals are symmetric. Brainstem and skull base abnormalities are not seen. Post contrast images demonstrate no evidence of pathologic enhancement in the posterior cranial anu a or the internal auditory canals. There is no abnormal enhancement of the labyrinths. No enhancing intracranial lesions. Dural venous sinuses are patent. There is scattered mild mucosal thickening in the ethmoid air cells. Small amount of fluid within the inferior mastoid air cells on both sides. Globes are intact. Susceptibility artifact relating to previous posterior cervical fusion hardware. IMPRESSION: 1. Chronic T2 bright white matter change with moderate scattered burden compared to 2018. Findings mo st likely relating to chronic small vessel ischemic disease. No acute intracranial abnormality seen. 2. Small amount of fluid within the bilateral inferior mastoid air cells on both sides. Correlate for any mastoid pain to exclude mastoiditis. Otherwise, unremarkable acoustic MRI. 3. Unchanged 3 mm cyst or hypoenhancing lesion within the anterior left pituitary gland compared to 2 018. Either a small Rathke's cleft cyst or microadenoma. 4. Mild chronic ethmoid sinus disease
== END | disposition home or self-care (01) ==
LOC: RADMRIMAIN 13:26
PROVIDERS: ATTEND Otolaryngology
DX: J32.2 Chronic ethmoidal sinusitis (principal); G93.89 Other specified disorders of brain; H74.8X3 Other specified disorders of middle ear and mastoid, bilateral; E23.6 Other disorders of pituitary gland
CPT/HCPCS: 70553; A9585

== ENCOUNTER → 2024-02-04 | Outpatient (CLI) | payer MEDICARE, OTHER ==
--- NOTE | 2024-02-04 14:24 | USB ---
Reason for Exam: Clinical finding. Patient History: Menarche at age 13. First Full-Term at age 20. Hysterectomy at age 32. Postmenopausal. Other cancer, age 61. Mother had breast cancer, age 36. Risk Values: Kareen 5 year model risk: 3.2%. NCI Lifetime model risk: 5.4%. Technique: Method: Targeted. Prior Study Comparison: 10/27/2017 Bilateral Screening Mammogram, [facility]. 11/10/2019 Bilateral Screening Mammogram, [facility]. 02/01/2023 Bilateral MG 3D screening mammo w/cad, [facility]. Findings: The retroareolar of the left breast was scanned. No solid or cystic masses are identified.. Overall Assessment: Negative, BI-RAD 1 Management: Screening Mammogram of both breasts in 1 month. A clinical breast exam by your physician is recommended on an annual basis and results should be correlated with mammographic findings. This exam should not preclude additional follow-up of suspicious palpable abnormalities. Results were given to the patient verbally at the time of exam. [facility], , 02/04/2024 2:21 PM. Electronically signed and approved by: Mckay Awad D.O. Radiologis
--- NOTE | 2024-02-04 15:27 | CT ---
EXAMINATION TYPE: CT chest wo con DATE OF EXAM: 02/04/2024 COMPARISON: 10/19/2021 HISTORY: 79-year-old female D23.5 lung nodule TECHNIQUE: Contiguous axial scanning of the chest without IV contrast. Coronal/sagittal reconstructio ns performed. CT DLP: 347mGycm. Automatic exposure control utilized for a dose reduction. FINDINGS: Heart normal size without pericardial effusion. Ectatic ascending aorta 3.6 cm. Within the chart was a branching anatomy. Mild atherosclerotic calcif ications descending thoracic aorta. No thoracic lymphadenopathy by CT size criteria. Unchanged strandy scarring at the bilateral lower lungs. Biapical pleural parenchymal scarring. Suspect mild emphysematous change. A 7 mm subpleural nodule lateral right upper lobe, axially study 2 is unchanged. 5 mm right middle lobe pulmonary nodule, axillary and 45 is unchanged. A number of additional 4 mm and smaller pulmonary nodules remain unchanged. Tiny hiatal hernia. Otherwise, visualized upper abdomen shows cholecystectomy clips. Mild stool burde n. Mild degenerative disc disease mid thoracic spine. Some posterior cervical fusion hardware partially visualized. IMPRESSION: 1. COPD with mild emphysema and chronic strandy scarring at the lung bases. 2. Scattered 7 mm and smaller pulmonary nodules remain unchanged back to 2021 compatible with a benig n etiology. 3. Tiny hiatal hernia. [facility], , 02/04/2024 3:25 PM
== END | disposition home or self-care (01) ==
LOC: RADCTMAIN 13:49
PROVIDERS: ATTEND Family Medicine
DX: D23.5 Other benign neoplasm of skin of trunk (principal); J44.9 Chronic obstructive pulmonary disease, unspecified; J43.9 Emphysema, unspecified; K44.9 Diaphragmatic hernia without obstruction or gangrene; R91.1 Solitary pulmonary nodule
CPT/HCPCS: 71250

== ENCOUNTER → 2024-02-10 | Outpatient (CLI) | payer MEDICARE, OTHER ==
--- NOTE | 2024-02-13 14:02 | MM ---
Reason for Exam: Screening (asymptomatic). Last screening mammogram was performed 12 month(s) ago. Patient History: Menarche at age 13. First Full-Term at age 20. Hysterectomy at age 32. Postmenopausal. Other cancer, age 61. Mother had breast cancer, age 36. Risk Values: Kareen 5 year model risk: 3.2%. NCI Lifetime model risk: 5.4%. Prior Study Comparison: 10/27/2017 Bilateral Screening Mammogram, [facility]. 11/10/2019 Bilateral Screening Mammogram, [facility]. 02/01/2023 Bilateral MG 3D screening mammo w/cad, [facility]. Tissue Density: The breasts are heterogeneously dense, which may obscure small masses. Findings: Analyzed By CAD. The pattern is symmetrical. Vascular calcification is present bilaterally. No suspicious groups of microcalcifications, spiculated or lobular masses, architectural distortion or other secondary signs of malignancy are mammographically apparent. Overall Assessment: Benign, BI-RAD 2 Management: Screening Mammogram of both breasts in 1 year. A negative mammogram report should not preclude additional follow up of suspicious palpable abnormalities. Patient should continue monthly self breast exam. A clinical breast exam by your physician is recommended on an annual basis and results should be correlated with mammographic findings. Note on Kareen scores and lifetime risk: 1. A Kareen score greater than 3% is considered moderate risk. If this is the case, consider specialist referral to assess eligibility for a risk reducing agent. 2. If overall lifetime risk for the development of breast cancer is 20% or higher, the patient may qualify for future screening with alternating mammogram and breast MRI. [facility], , 02/13/2024 1:59 PM. Electronically signed and approved by: Mckay Awad D.O. Radiologis
== END | disposition home or self-care (01) ==
LOC: RADMAMWWP 12:31
PROVIDERS: ATTEND Family Medicine
DX: Z12.31 Encounter for screening mammogram for malignant neoplasm of breast
CPT/HCPCS: 77063; 77067

== ENCOUNTER → 2024-11-06 | Outpatient (CLI) | payer MEDICARE, OTHER ==
--- NOTE | 2024-11-06 22:51 | US ---
EXAMINATION TYPE: US kidneys/renal and bladder DATE OF EXAM: 11/06/2024 COMPARISON: CLINICAL INDICATION: Female, 79 years old with history of N18.31 CHRONIC KIDNEY DISEASE, STAGE 3A; Ab normal labs. TECHNIQUE: Grayscale imaging of the bilateral kidneys and urinary bladder: FINDINGS: EXAM MEASUREMENTS: Right Kidney: 9.8 x 3.7 x 3.1 cm Left Kidney: 9.3 x 3.7 x 4.4 cm Right Kidney: Medial anechoic area at hilum Left Kidney: No hydronephrosis or masses seen Bladder: Distended, anechoic Bilateral Jets seen There is no evidence for hydronephrosis at this point in time. No nephrolithiasis is seen. No americo s are identified. The urinary bladder is anechoic. IMPRESSION: 1. No acute ABNORMALITY BILATERAL KIDNEYS [facility], , 11/06/2024 10:49 PM
== END | disposition home or self-care (01) ==
LOC: RADUSWWP 14:25
PROVIDERS: ATTEND Internal Medicine Nephrology
DX: N18.31 Chronic kidney disease, stage 3a (principal)
CPT/HCPCS: 76770